=== PATIENT | male | born 1950 | race Caucasian/White ===

== ENCOUNTER 2021-06-23 10:25 | Emergency (ER) | payer MEDICARE, SELFPAY ==
[2021-06-23 10:25] VITALS: BP 177/109; PULSE 78; RESP 16; TEMP 36.6; O2SAT 99
--- NOTE | 2021-06-23 11:02 | ED.GENADULT ---
HPI - General Adult General Chief complaint: Ear Stated complaint: ball of hearing aid stuck in ear Source: patient Mode of arrival: ambulatory Limitations: no limitations History of Present Illness HPI narrative: Cory is a 71M with a PMH of hearing loss that presented to the ED with part of his hearing aid stuck in his left ear and a sense of fullness in his right ear. He denies pain and drainage as well as other concerns. Related Data Home Medications Medication Instructions Recorded Confirmed No Home Medications 06/23/21 06/23/21 Allergies Allergy/AdvReac Type Severity Reaction Status Date / Time NKDA Allergy Unknown Uncoded 03/27/12 16:10 Review of Systems Constitutional: Constitutional: Reports no additional constitutional complaints Eyes: Eyes: Reports no additional eye complaints ENT: Reports as per HPI Cardiovascular: Cardiovascular: Reports no additional cardiovascular complaints Respiratory: Respiratory: Reports no additional respiratory complaints Gastrointestinal: Gastrointestinal: Reports no additional gastrointestinal complaints Genitourinary: Genitourinary: Reports no additional male genitourinary complaints Musculoskeletal: Musculoskeletal: Reports no additional musculoskeletal complaints Integumentary/Breasts: Skin/Breast: Reports system reviewed and no additional complaints, except as docu Neurologic: Reports system reviewed and no additional complaints, except as documented Psychiatric: Psychiatric: Reports no additional psychiatric complaints Endocrine: Endocrine: Reports no additional endocrine complaints Hematologic/Lymphatic: Hematologic/Lymphatic: Reports no additional hematologic/lymphatic complaints Allergic/Immunologic: Allergic/Immunologic: Reports no additional allergic/immunologic complaints Exam Const: General: no acute distress and alert Orientation/consciousness: patient oriented x3 Limitations: No altered mental status HENMT: Head: normal to inspection Ears: TM's normal bilaterally Other: atraumatic. Black rubber piece in the right external ear canal. Cerumen impaction in the left ear canal. Eyes: Conjunctivae: conjunctivae normal Pupils: Equal, round and reactive pupils present Neck: Neck: normal visual inspection Chest: Chest palpation & inspection: normal inspection of the chest Resp: Effort & Inspection: normal respiratory effort Auscultation: clear to auscultation bilaterally Cardio: Rate: regular rate Rhythm: regular rhythm GI: Inspection: non-distended GI Palp: Yes Soft to palpation, No Tenderness to palpation present (GI) and No Guarding due to palpation present (GI) Urinary Catheter: Urinary Catheter: patent and draining Back/Spine/Pelvis: Back: no CVA tenderness Skin: General skin exam: normal color Rashes: no rashes Neuro: General: patient oriented x3 and moves all extremities Extrem: General: normal to inspection Psych: Mental Status: mental status grossly normal Course Vital Signs Vital signs: Vital Signs Temperature 98 F 06/23/21 10:25 Pulse Rate 78 06/23/21 10:25 Respiratory Rate 16 06/23/21 10:25 Blood Pressure 177/109 H 06/23/21 10:25 Pulse Oximetry 99 06/23/21 10:25 Temperature 98 F 06/23/21 10:25 Pulse Rate 78 06/23/21 10:25 Respiratory Rate 16 06/23/21 10:25 Blood Pressure 177/109 H 06/23/21 10:25 Pulse Oximetry 99 06/23/21 10:25 Procedures Ear Wax Removal Left Ear: Ear Wax Removal Date: 06/23/21 Cerumenolytic Used: other (curette) Results: Re-examined: cerumen removed completely TM Examination: TM(s) intact, normal appearance Ear Canal Exam: atraumatic Patient Tolerated Procedure: well Complications: no problems Foreign Body Removal Foreign Body #1: Foreign Body Removal Date: 06/23/21 Site: right and ear Description of foreign body: other (rubber hearing aid cover) Sedation/Analgesia: none Te
[2021-06-23 11:06] VITALS: TEMP 36.6
== END 2021-06-23 11:06 | disposition home or self-care (01) ==
PROVIDERS: Emergency Provider Family Medicine; PCP Family Medicine
DX: H61.20 Impacted cerumen, unspecified ear (principal)
CPT/HCPCS: 69200; 69210; 99282

== ENCOUNTER 2024-01-01 07:41 | Outpatient (CLI) | payer MEDICARE, SELFPAY ==
[2024-01-01 08:11] LABS: Hemoglobin A1C 5.7 % (<5.7)
[2024-01-01 08:44] LABS: Cholesterol 149 mg/dL (0-200); HDL Direct 60 mg/dL (40-60); LDL Cholesterol Calculated 73 mg/dL (<130); Triglycerides 78 mg/dL (0-150)
[2024-01-05 20:40] LABS: Vitamin D 25 Hydroxy 39 ng/mL (30-100)
== END 2024-01-01 07:42 | disposition home or self-care (01) ==
LOC: CHSLAB 07:44
PROVIDERS: PCP Family Medicine; Visit Provider Family Medicine
DX: E78.5 Hyperlipidemia, unspecified (principal); E55.9 Vitamin D deficiency, unspecified; R73.9 Hyperglycemia, unspecified
CPT/HCPCS: 36415; 80061; 82306; 83036

== ENCOUNTER 2024-12-14 09:25 | Outpatient (CLI) | payer MEDICARE, SELFPAY ==
[2024-12-14 09:47] LABS: Basophils Absolute Auto 0.05 K/mm3 (0.00-0.10); Basophils Percent Auto 0.6 % (0.0-1.0); Eosinophils Absolute Auto 0.14 K/mm3 (0.02-0.50); Eosinophils Percent Auto 1.8 % (1.0-6.0); Hematocrit 35.5 % (37.0-46.0); Hemoglobin 11.4 g/dL (12.4-15.3); Immature Granulocyte Absolute 0.05 K/mm3 (0.00-0.00); Immature Granulocyte Percent A 0.6 % (0.0-0.0); Lymphocytes Absolute Auto 1.75 K/mm3 (1.10-4.50); Lymphocytes Percent Auto 22.6 % (18.0-42.0); Mean Corpuscular HGB Conc 32.1 g/dL (32-36); Mean Corpuscular Hemoglobin 31.1 pg (27.0-31.0); Mean Corpuscular Volume 96.7 fL (78.0-102.0); Mean Platelet Volume 9.6 fl (8.7-11.0); Monocytes Absolute Auto 0.87 K/mm3 (0.10-0.90); Monocytes Percent Auto 11.2 % (2.0-11.0); Neutrophils Percent Auto 63.2 % (50.0-70.0); Platelet Count Result 220 K/mm3 (150-420); Red Blood Count 3.67 M/mm3 (4.70-6.10); Red Cell Distribution Width 12.7 % (11.6-14.4); White Blood Count 7.8 K/mm3 (4.8-10.8)
[2024-12-14 10:35] LABS: Thyroid Stimulating Hormone 0.89 uIU/mL (0.36-3.74)
[2024-12-14 11:32] LABS: Hemoglobin A1C 5.7 % (<5.7)
--- OUTSIDE RECORDS SUMMARY | 2024-12-14 12:12 | XMS_ITS | Referral Summary ---
Author Organization [facility] Medical Office Building A Address [address] [place] [address] Care Team Providers Care Email Engineer Name Role Phone Saurabh Contreras MD Primary Care Provider [phone] Yury Titus MD Unavailable [phone] Encounters Date Type Department Care Team Description 10/19/2024 11:15 AM RETAIL MANAGEMENT KEYHOLDER Office Visit 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); Tobacco abuse 10/19/2024 8:48 AM RETAIL MANAGEMENT KEYHOLDER - 10/19/2024 11:59 PM RETAIL MANAGEMENT KEYHOLDER Hospital Encounter [facility] [address] [place] [id number] Encounter for surgical aftercare following surgery on the circulatory system; Infrarenal abdominal aortic aneurysm (AAA) without rupture (HCC) Discharge Disposition: Discharge to home or self care 10/19/2024 8:59 AM RETAIL MANAGEMENT KEYHOLDER - 10/19/2024 11:59 PM RETAIL MANAGEMENT KEYHOLDER Hospital Encounter [facility] [address] [place] [id number] Encounter for surgical aftercare following surgery on the circulatory system Discharge Disposition: Discharge to home or self care 09/22/2024 Orders Only [facility] [address] [facility] Medical Office Building 1 [address] [place] [id number] Yury Titus MD Encounter for surgical aftercare following surgery on the circulatory system (Primary Dx); Infrarenal abdominal aortic aneurysm (AAA) without rupture (HCC) 09/17/2024 5:41 AM RETAIL MANAGEMENT KEYHOLDER - 09/20/2024 3:30 PM RETAIL MANAGEMENT KEYHOLDER Hospital Encounter [address] [address] Yury Titus MD Infrarenal abdominal aortic aneurysm (AAA) without rupture (HCC); PVD (peripheral vascular disease) (HCC) Discharge Disposition: Discharge to home or self care 09/17/2024 7:30 AM RETAIL MANAGEMENT KEYHOLDER - 09/17/2024 1:45 PM RETAIL MANAGEMENT KEYHOLDER Surgery [facility] Operating Room [address] [place] [address] Yury Titus MD RIGHT FEMORAL ENDARTERECTOMY 09/17/2024 7:23 AM RETAIL MANAGEMENT KEYHOLDER Anesthesia Event [facility] Operating Room [address] [place] [address] Bigg Martinez MD Rupert, Denisa White MD PhD from Last 3 Months Allergies No known active allergies Medications cyanocobalamin (Vitamin B-12) 500 mcg tablet Take 1 tablet (500 mcg total) by mouth dogger before breakfast Active ascorbic acid (VITAMIN C) 1,000 mg tablet Take 1 tablet (1,000 mg total) by mouth dogger before breakfast Active cholecalcifero l (VITAMIN D-3) 25 mcg (1,000 unit) tablet Take 1 tablet (1,000 Units total) by mouth dogger before breakfast Active aspirin 81 mg chewable tablet Take 1 tablet (81 mg total) by mouth daily 30 tablet 08/03/20 Active Additional Information Patient taking differently:81 mg oralDaily (early AM), Indications: prevention of thrombosis, Informant: Self, Reported on 09/17/2024 acetaminophen (TYLENOL) 500 mg tabletIndicati ons:Pain Take 1 tablet (500 mg total) by mouth every 6 (six) hours as needed for pain Active atorvastatin (LIPITOR) 80 mg tablet Take 1 tablet (80 mg total) by mouth nightly 30 tablet 07/20/20 24 Active Additional Information Patient taking differently:80 mg oral Nightly,Indications: arteriosclerotic vascular disease, hyperlipidemia, Informant: Self, Reported on 09/17/2024 clopidogreL (PLAVIX) 75 mg tablet Take 1 tablet (75 mg total) by mouth daily 30 tablet 07/20/20 24 Active Additional Information Patient taking differently:75 mg oralDaily (early AM), Indications: Thrombosis Prevention after PCI, Informant: Self, Reported on 09/17/2024 ezetimibe (ZETIA) 10 mg tablet Take 1 tablet (10 mg total) by mouth daily 30 tablet 07/20/20 025 Active Additional Information Patient taking differently:10 mg oralDaily (early AM), Indications: hyperlipidemia, Informant: Self, Reported on 09/17/2024 fluticasone propionate (FLONASE) 50 mcg/actuation nasal spray Administer 1 spray into each nostril daily as needed for rhinitis or allergies Active oxyCODONE (ROXICODONE) 5 mg immediate release tabletIndicati ons:Pain Take 1 tablet (5 mg total) by mouth every 4 (four) hours as needed for pain 10 tablet 09/20/20 24 Active Active Problems Problem Noted Date Diagnosed Date Aortic aneurysm without rupture 09/18/2024 AAA (abdominal aortic aneurysm) without rupture 09/17/2024 Infrarenal abdominal aortic aneurysm (AAA) witho ut rupture 08/17/2024 Assessment & Plan (09/19/2024 11:29 AM RETAIL MANAGEMENT KEYHOLDER): Recent CT angiogram shows 5.5 cm abdominal aortic aneurysm. Presents for hybrid intervention for AAA repair and PVD. - 09/17: OR s/p B/L EARLY CHILDHOOD SERVICES COORDINATOR cutdown (L EARLY CHILDHOOD SERVICES COORDINATOR repaired primarliy; R EARLY CHILDHOOD SERVICES COORDINATOR-SFA patch angioplasty at end of case); EVAR; L external iliac stenting and angioplasty - Normotensive blood pressure goal - OOB POD1 - ADAT - Pain control - PT/OT recs pending Carotid stenosis, bilateral 01/13/2024 Primary hypertension 02/26/2022 Assessment & Plan (09/17/2024 8:44 AM RETAIL MANAGEMENT KEYHOLDER): Not on medications. - monitor BP PVD (peripheral vascular disease) 07/25/2021 Overview (07/25/2021): Added automatically from request for surgery [id number] Assessment & Plan (09/19/2024 11:28 AM RETAIL MANAGEMENT KEYHOLDER): Hx of right external iliac artery stent that extends into the right common femoral artery along with right popliteal artery stent with Dr Smith at [facility] (07/2021). - 09/17: OR s/p B/L EARLY CHILDHOOD SERVICES COORDINATOR cutdown (L EARLY CHILDHOOD SERVICES COORDINATOR repaired primarliy; R EARLY CHILDHOOD SERVICES COORDINATOR-SFA patch angioplasty at end of case); EVAR; L external iliac stenting and angioplasty - continue asa, statin. Plavix on hold. - will resume plavix upon discharge Hyperlipidemia 04/07/2020 Assessment & Plan (09/17/2024 8:22 AM RETAIL MANAGEMENT KEYHOLDER): - continue atorvastatin, ezetimibe Abdominal aortic aneurysm (A AA) 3.0 cm to 5.5 cm in diameter in male 06/09/2017 Splenic lesion 06/09/2017 Pulmonary emphysema 04/21/2017 Vitamin D deficiency 03/31/2017 Tobacco abuse 02/18/2017 Assessment & Plan (09/17/2024 1:51 PM RETAIL MANAGEMENT KEYHOLDER): Has not smoked in 3 mo. - encourage cessation - NRT Immunizations Immunization Administration Dates Next Due Influenza, Quadrivalent, Spl it, Intramuscular 11/10/2013 Influenza, Quadrivalent, Spl it, Preservative Free, Intramuscular 09/11/2021,07/05/2020,07/28/2019,09/03,07/25/2016 Influenza, Trivalent, High D ose, Split, Preservative Free, Intramuscular 07/24/2017 Influenza, Trivalent, IM (MDV) 08/09/2017 Influenza, Trivalent, Preser vative Free, Intramuscular 07/18/2015 Influenza, Unspecified 08/09/2017 Pneumococcal Conjugate PCV 13 02/05/2018 Pneumococcal Polysaccharide PPV23 12/08/2019 Social History Tobacco Use Types Packs/Day Years Used Date Smoking Tobacco: Former Cigarettes 2 59.7 1 965 - 07/2024 Smokeless Tobacco: Former Chew Quit: 1993 Tobacco Cessation:Counseling Given: Not Answered Comments:counselled to contact PCP for assistance with quitting. Currently using patches. AUDIT-C Answer Date Recorded Q1: How often do you have a drink containing alc ohol? 2-4 times a month 09/09/2024 Q2: How many drinks containi ng alcohol do you have on a typical day when you are drinking? 3 or 4 09/09/2024 Q3: How often do you have si x or more drinks on one occasion? Never 09/09/2024 Personal Safety Answer Date Recorded Have you ever been in or are you currently in a harmful physical or emotional relationship or is someone making you feel afraid or unsafe? Denies 09/17/2024 Sex and Gender Information Value Date Recorded Sex Assigned at Not on file Legal Sex Male 6:57 AM RETAIL MANAGEMENT KEYHOLDER Gender Identity Not on file Sexual Orientation Not on file Last Filed Vital Signs Vital Sign Reading Time Taken Comments Blood Pressure 129/84 10/19/2024 10:18 AM RETAIL MANAGEMENT KEYHOLDER Pulse 78 10/19/2024 10:18 AM RETAIL MANAGEMENT KEYHOLDER Temperature 37.6 C (99.6 F) 09/20/2024 11:31 AM RETAIL MANAGEMENT KEYHOLDER Respiratory Rate 18 09/20/2024 11:3 1 AM RETAIL MANAGEMENT KEYHOLDER Oxygen Saturation 99% 10/19/2024 10: 18 AM RETAIL MANAGEMENT KEYHOLDER Inhaled Oxygen Concentration - - Weight 68.4 kg (150 lb 12.7 oz) 024 10:18 AM RETAIL MANAGEMENT KEYHOLDER Height 182.9 cm (6') 10/19/2024 10:18 AM RETAIL MANAGEMENT KEYHOLDER Body Mass Index 20.45 10/19/2024 10:18 AM RETAIL MANAGEMENT KEYHOLDER Plan of Treatment Not on file Medical Devices Implanted Type Area Ride Mechanic Device Identifier Shelf Expiration Date Model / Serial / Lot Terumo Medical Jarod Stent Graft Aortic Bifurcated Main Body [id number] Treo Polyester Nitinol 31-K8-67-100u - [id number] Implanted:Qty: 1 on 09/17/2024 by Yury Titus MD at [facility] Stent N/A: Aorta [employer] Jarod 03/19/2027 28-B2-28- 100U / / [id number] [employer] Jarod Stent Graft Iliac Leg Extension [id number] Treo Polyester Nitinol 02-Y7-59-120u - [id number] Implanted:Qty: 1 on 09/17/2024 by Yury Titus MD at [facility] Stent Right: Common Iliac Artery [employer] Jarod 05/14/2027 28-L2-13- 120U / / [id number] [employer] Jarod Stent Graft Iliac Leg Extension 13/54m900xh Treo Polyester Nitinol 40-A8-39-120u - [id number] Implanted:Qty: 1 on 09/17/2024 by Yury Titus MD at [facility] Stent Left: Common Iliac Artery [employer] Jarod 04/25/2027 28-L2-13- 120U / / [id number] Medtronic Inc Everflex 8mm 60mm 80cm 3 Wave Peak Self Expand Flexible Spiral [id number] - [id number] Implanted:Qty: 1 on 09/17/2024 by Yury Titus MD at [facility] Stent Left: External Iliac Artery Medtronic Inc [id number] 08/13/2027 [id number]- 060-080 / / [id number] Medtronic Inc Everflex Entrust 8mm 80mm 120cm Self Expand Triaxial Low Profile - [id number] Implanted:Qty: 1 on 08/03/2021 by Triston Smith MD at [facility] Medtronic Inc 12/30/2022 MMS14-48- 080-120 / / [id number] Daig Jarod/St Messi Medical [id number] Angio-Seal Evolution 6fr .035in Guidewire Bypass Tube Suture - [id number] Implanted:Qty: 1 on 08/03/2021 by Triston Smith MD at [facility] [employer] 03/27/2022 [id number] / / [id number] [employer] Inc [id number] Zilver Ptx 6mm 100mm 125cm Otw Preload Delivery System Self - [id number] Implanted:Qty: 1 on 08/03/2021 by Triston Smith MD at [facility] [employer] Medical Inc 04/27/2023 [id number] / / [id number] Medtronic Inc Everflex Entrust 7mm 40mm 120cm Self Expand Triaxial Low Profile - [id number] Implanted:Qty: 1 on 08/03/2021 by Triston Smith MD at [facility] Medtronic Inc 03/28/2024 FYC52-41- 040-120 / / [id number] [employer] Jraod Synergy Xd Monorail 3mm 24mm 144cm Delivery System 1 Access Port [id number] - [id number] Implanted:Qty: 1 on 04/04/2022 by Triston Smith MD at [facility] [employer] Jarod 11/13/2023 [id number] / / [id number] [employer] Jarod Synergy Xd Monorail 2.75mm 16mm 144cm Delivery System 1 Access [id number] - [id number] Implanted:Qty: 1 on 04/04/2022 by Triston Smith MD at [facility] [employer] Scientific Jarod 08/29/2023 [id number] / / [id number] [employer] Jarod Stent Drug Eluting S Megatron Us Mr 3.55h86bf [id number] - [id number] Implanted:Qty: 1 on 04/04/2022 by Triston Smith MD at [facility] [employer] Scientific Jarod 11/13/2022 [id number] / / [id number] Angio-Seal Evolution 6fr Vascular Closure [id number] - [id number] Implanted:Qty: 1 on 04/04/2022 by Triston Smith MD at [facility] [employer] 09/26/2022 [id number] / / [id number] [facility] Jarod Patch Vascuguard 0.88cm [id number] - [id number] - [id number] Implanted:Qty: 1 on 09/17/2024 by Yury Titus MD at [facility] Left: Groin [facility] Jarod [id number] 04/23/2026 [id number] / [id number] / [id number] Procedures Procedure Name Priority Date/Time Associated Diagnosis Comments CTA ABDOMINAL AORTA AND BILATERAL ILIOFEMORAL RUNOFF Schedule Routine, Read Routine (OP Routine) 10/19/2024 10:00 AM RETAIL MANAGEMENT KEYHOLDER Encounter for surgical aftercare following surgery on the circulatory system Infrarenal abdominal aortic aneurysm (AAA) without rupture (HCC) US FAB Schedule Routine, Read Routine (OP Routine) 10/19/2024 9:31 AM RETAIL MANAGEMENT KEYHOLDER Encounter for surgical aftercare following surgery on the circulatory system CBC WITHOUT DIFFERENTIAL Timed 09/20/2024 5:56 AM RETAIL MANAGEMENT KEYHOLDER EGFR Routine 09/19/2024 12:13 AM RETAIL MANAGEMENT KEYHOLDER BASIC METABOLIC PANEL Routine 09/19/2024 12:13 AM RETAIL MANAGEMENT KEYHOLDER CBC WITHOUT DIFFERENTIAL Routine 09/19/2024 12:13 AM RETAIL MANAGEMENT KEYHOLDER EGFR Routine 09/17/2024 10:47 PM RETAIL MANAGEMENT KEYHOLDER BASIC METABOLIC PANEL Routine 09/17/2024 10:47 PM RETAIL MANAGEMENT KEYHOLDER CBC WITHOUT DIFFERENTIAL Routine 09/17/2024 10:47 PM RETAIL MANAGEMENT KEYHOLDER POCT GLUCOSE DEVICE Routine 09/17/2024 8 :42 PM RETAIL MANAGEMENT KEYHOLDER DIFFERENTIAL AUTO Routine 09/17/2024 12: 21 PM RETAIL MANAGEMENT KEYHOLDER CBC WITH AUTO DIFFERENTIAL Routine 09/17/2024 12:21 PM RETAIL MANAGEMENT KEYHOLDER CV HYBRID ROOM (DEFAULT ORDERABLE) Routine 09/17/2024 12:00 PM RETAIL MANAGEMENT KEYHOLDER Infrarenal abdominal aortic aneurysm (AAA) without rupture (HCC) PVD (peripheral vascular disease) (HCC) VASCULAR SURGERY PROCEDURE Routine 09/17/2024 12:00 PM RETAIL MANAGEMENT KEYHOLDER Infrarenal abdominal aortic aneurysm (AAA) without rupture (HCC) PVD (peripheral vascular disease) (HCC) POCT ACTIVATED CLOTTING TIME, LOW RANGE Routine 09/17/2024 11:18 AM RETAIL MANAGEMENT KEYHOLDER POCT ACTIVATED CLOTTING TIME, LOW RANGE Routine 09/17/2024 11:02 AM RETAIL MANAGEMENT KEYHOLDER POCT ACTIVATED CLOTTING TIME, LOW RANGE Routine 09/17/2024 10:39 AM RETAIL MANAGEMENT KEYHOLDER POCT ACTIVATED CLOTTING TIME, LOW RANGE Routine 09/17/2024 10:04 AM RETAIL MANAGEMENT KEYHOLDER POCT ACTIVATED CLOTTING TIME, LOW RANGE Routine 09/17/2024 9:33 AM RETAIL MANAGEMENT KEYHOLDER POCT ACTIVATED CLOTTING TIME, LOW RANGE Routine 09/17/2024 9:01 AM RETAIL MANAGEMENT KEYHOLDER WV AN PROCEDURE PLACEHOLDER Routine 09/17/2024 8:30 AM RETAIL MANAGEMENT KEYHOLDER WV AN PROCEDURE PLACEHOLDER Routine 09/17/2024 8:28 AM RETAIL MANAGEMENT KEYHOLDER WV AN ELECTIVE ENDOTRACHEAL AIRWAY Routine 09/17/2024 8:28 AM RETAIL MANAGEMENT KEYHOLDER POC BLOOD GAS AND CHEMISTRIES, ARTERIAL Routine 09/17/2024 8:28 AM RETAIL MANAGEMENT KEYHOLDER POCT ACTIVATED CLOTTING TIME, LOW RANGE Routine 09/17/2024 8:07 AM RETAIL MANAGEMENT KEYHOLDER PREPARE RBC STAT 09/17/2024 7:54 AM RETAIL MANAGEMENT KEYHOLDER PLACEMENT STENT - ILIAC ARTERY - HYBRID ROOM 09/17/2024 7:28 AM RETAIL MANAGEMENT KEYHOLDER Infrarenal abdominal aortic aneurysm (AAA) without rupture (HCC) PVD (peripheral vascular disease) (HCC) POC BLOOD GAS AND CHEMISTRIES, ARTERIAL Routine 09/17/2024 6:22 AM RETAIL MANAGEMENT KEYHOLDER B CHECK SAMPLE STAT 09/17/2024 6:20 AM RETAIL MANAGEMENT KEYHOLDER from Last 3 Months Results * CTA Abdominal Aorta And Bilateral Iliofemoral Runoff (10/19/2024 10:00 AM RETAIL MANAGEMENT KEYHOLDER) Anatomical Region Laterality Modality Body Bilateral Computed Tomogra phy 10/19/2024 11:0 8 AM RETAIL MANAGEMENT KEYHOLDER Impressions 10/19/2024 11:08 AM RETAIL MANAGEMENT KEYHOLDER New aortobiiliac endovascular stent graft. Stable 58 mm infrarenal abdominal aortic aneurysm. Type II endoleak at the inferior mesenteric artery. Atherosclerotic disease in the lower extremity arteries. Electronically signed by: Abel May M.D. Narrative 10/19/2024 11:08 AM RETAIL MANAGEMENT KEYHOLDER EXAMINATION: CTA ABDOMINAL AORTA AND BILATERAL ILIOFEMORAL RUNOFF DATE: 10/19/2024 10:30 AM HISTORY: S/P EVAR TECHNIQUE: Images through the abdomen, pelvis and bilateral lower extremities were obtained following intravenous contrast administration. Three-dimensional performed. COMPARISON: 08/12/2024 FINDINGS: Aortobiiliac endovascular stent graft is present, new since 08/12/2024. There is a 51 x 58 mm infrarenal abdominal aortic aneurysm, unchanged in size. Stent graft appears in good position. Type II endoleak is noted likely at the inferior mesenteric artery. Stent graft is patent. The celiac and superior mesenteric arteries enhance normally. Bilateral renal arteries are patent and enhance normally. Patent stent is noted in the right external iliac artery and common femoral artery. Right internal iliac artery is calcified and moderately diseased. The right deep femoral artery is normal. The right superficial femoral artery is mildly diseased but patent. Patent stent is noted in the right popliteal artery [id number]. Approximately 50% focal in-stent stenosis is noted at the popliteal artery. Popliteal artery below the knee is mildly diseased but patent. There is a normal trifurcation on the right. The right tibial and peroneal arteries are mildly diseased but patent. There is three-vessel runoff to the right ankle and 2 vessel runoff to the right foot. Patent stent is noted in the left external iliac artery. Left internal iliac artery is calcified and moderately diseased. Left common femoral artery is calcified but without hemodynamically significant stenosis. The left deep femoral artery enhances normally. The left superficial femoral artery is mildly calcified but patent and without hemodynamically significant stenosis. The left popliteal artery is mildly calcified but without hemodynamically significant stenosis. There is a patent stent in the left posterior tibial artery origin. The tibial and peroneal arteries on the left are relatively normal. There is three-vessel runoff to the left ankle with 2 vessel runoff to the left foot. Procedure Note Abel May MD - 10/19/2024 EXAMINATION: CTA ABDOMINAL AORTA AND BILATERAL ILIOFEMORAL RUNOFF DATE: 10/19/2024 10:30 AM HISTORY: S/P EVAR TECHNIQUE: Images through the abdomen, pelvis and bilateral lower extremities were obtained following intravenous contrast administration. Three-dimensional performed. COMPARISON: 08/12/2024 FINDINGS: Aortobiiliac endovascular stent graft is present, new since 08/12/2024. There is a 51 x 58 mm infrarenal abdominal aortic aneurysm, unchanged in size. Stent graft appears in good position. Type II endoleak is noted likely at the inferior mesenteric artery. Stent graft is patent. The celiac and superior mesenteric arteries enhance normally. Bilateral renal arteries are patent and enhance normally. Patent stent is noted in the right external iliac artery and common femoral artery. Right internal iliac artery is calcified and moderately diseased. The right deep femoral artery is normal. The right superficial femoral artery is mildly diseased but patent. Patent stent is noted in the right popliteal artery [id number]. Approximately 50% focal in-stent stenosis is noted at the popliteal artery. Popliteal artery below the knee is mildly diseased but patent. There is a normal trifurcation on the right. The right tibial and peroneal arteries are mildly diseased but patent. There is three-vessel runoff to the right ankle and 2 vessel runoff to the right foot. Patent stent is noted in the left external iliac artery. Left internal iliac artery is calcified and moderately diseased. Left common femoral artery is calcified but without hemodynamically significant stenosis. The left deep femoral artery enhances normally. The left superficial femoral artery is mildly calcified but patent and without hemodynamically significant stenosis. The left popliteal artery is mildly calcified but without hemodynamically significant stenosis. There is a patent stent in the left posterior tibial artery origin. The tibial and peroneal arteries on the left are relatively normal. There is three-vessel runoff to the left ankle with 2 vessel runoff to the left foot. IMPRESSION: New aortobiiliac endovascular stent graft. Stable 58 mm infrarenal abdominal aortic aneurysm. Type II endoleak at the inferior mesenteric artery. Atherosclerotic disease in the lower extremity arteries. Electronically signed by: Abel May M.D. us Yury Titus MD IMEsme CT PROCEDURES Final Resu lt * US FAB (10/19/2024 9:31 AM RETAIL MANAGEMENT KEYHOLDER) Anatomical Region Laterality Modality Vascular N/A Ultrasound 10/19/2024 1:42 PM RETAIL MANAGEMENT KEYHOLDER Impressions 10/19/2024 1:42 PM RETAIL MANAGEMENT KEYHOLDER RIGHT LEG: Interval loss of signal in the DP, which corresponds to diminutive but patent to the ankle anterior tibialis artery in the CT scan from the same date, unchanged compared to prior CT scan from 08/12/2024. Otherwise unchanged exam compared to prior Doppler from 06/30/2024, with normal FAB, borderline abnormal TBI and multiphasic PT waveform. FAB is 1.02 in the PT territory, compared to 0.93 in the prior Doppler from 06/30/2024. TBI is 0.58, compared to 0.51 in the prior Doppler from 06/30/2024. LEFT LEG: Overall unchanged study compared to prior Doppler from 06/30/2024, with multiphasic tibial waveforms, normal FAB and mildly abnormal TBI. FAB is 0.99, compared to 0.86 in the prior Doppler from 06/30/2024. TBI is 0.35, compared to 0.46 in the prior Doppler from 06/30/2024. Electronically signed by: Earnestine James MD Narrative 10/19/2024 1:42 PM RETAIL MANAGEMENT KEYHOLDER EXAMINATION: BILATERAL LOWER EXTREMITY ANKLE BRACHIAL INDEX WITH DOPPLER DATE: 10/19/2024 9:30 AM HISTORY: Encounter for Surgical Aftercare Following Surgery on the Circulatory System COMPARISON: CTA from the same date 10/19/2024, prior Doppler from 06/30/2024 TECHNIQUE: Standard technique was employed for bilateral lower extremity ABIs including Doppler images with spectral waveform analysis. FINDINGS: SITE PRESSURE INDEX RT BRACHIAL 159 RT ANKLE PT 162 1.02 RT ANKLE DP not detected - RT DIGIT 92 0.58 Right dorsalis pedis waveform is not detectable and the posterior tibial waveform is multiphasic. The digital waveform is Pulsatile LT BRACHIAL 157 LT ANKLE PT 157 0.99 LT ANKLE DP 153 0.96 LT DIGIT 56 0.35 Left dorsalis pedis waveform is multiphasic and the posterior tibial waveform is multiphasic. The digital waveform is Pulsatile Procedure Note Earnestine Sagastume MD - 10/19/2024 EXAMINATION: BILATERAL LOWER EXTREMITY ANKLE BRACHIAL INDEX WITH DOPPLER DATE: 10/19/2024 9:30 AM HISTORY: Encounter for Surgical Aftercare Following Surgery on the Circulatory System COMPARISON: CTA from the same date 10/19/2024, prior Doppler from 06/30/2024 TECHNIQUE: Standard technique was employed for bilateral lower extremity ABIs including Doppler images with spectral waveform analysis. FINDINGS: SITE PRESSURE INDEX RT BRACHIAL 159 RT ANKLE PT 162 1.02 RT ANKLE DP not detected - RT DIGIT 92 0.58 Right dorsalis pedis waveform is not detectable and the posterior tibial waveform is multiphasic. The digital waveform is Pulsatile LT BRACHIAL 157 LT ANKLE PT 157 0.99 LT ANKLE DP 153 0.96 LT DIGIT 56 0.35 Left dorsalis pedis waveform is multiphasic and the posterior tibial waveform is multiphasic. The digital waveform is Pulsatile IMPRESSION: RIGHT LEG: Interval loss of signal in the DP, which corresponds to diminutive but patent to the ankle anterior tibialis artery in the CT scan from the same date, unchanged compared to prior CT scan from 08/12/2024. Otherwise unchanged exam compared to prior Doppler from 06/30/2024, with normal FAB, borderline abnormal TBI and multiphasic PT waveform. FAB is 1.02 in the PT territory, compared to 0.93 in the prior Doppler from 06/30/2024. TBI is 0.58, compared to 0.51 in the prior Doppler from 06/30/2024. LEFT LEG: Overall unchanged study compared to prior Doppler from 06/30/2024, with multiphasic tibial waveforms, normal FAB and mildly abnormal TBI. FAB is 0.99, compared to 0.86 in the prior Doppler from 06/30/2024. TBI is 0.35, compared to 0.46 in the prior Doppler from 06/30/2024. Electronically signed by: Earnestine James MD us Yury Titus MD IMG US PROCEDURES Final Resu lt * (ABNORMAL) CBC without differential (09/20/2024 5:56 AM RETAIL MANAGEMENT KEYHOLDER) WBC 13.7(H) 3.8 - 9.9 K/cumm Hgb 11.0(L) 13.0 - 17.5 g/dL [facility] Hct 33.1(L) 38.9 - 50.3 % [facility] Plt 137(L) 150 - 400 K/cumm [facility] MPV 10.9 9.1 - 12.3 fL [facility] RBC 3.50(L) 4.30 - 5.80 M/cumm [facility] MCV 94.6 81.3 - 96.4 fL [facility] MCH 31.4 27.1 - 33.3 pg [facility] MCHC 33.2 32.3 - 35.7 g/dL [facility] RDW CV 13.0 11.1 - 14.9 % [facility] RDW SD 45.1 35.7 - 48.1 fL [facility] NRBC abs 0.00 0.00 - 0.01 K/cumm [facility] Blood 09/20/2024 5:56 AM RETAIL MANAGEMENT KEYHOLDER 09/20/2024 6:28 AM RETAIL MANAGEMENT KEYHOLDER us Yury Titus MD LAB BLOOD ORDERABLES Final R esult [facility] [place] [address] * eGFR (09/19/2024 12:13 AM RETAIL MANAGEMENT KEYHOLDER) [facility] eGFR 73 >=60 mL/min/1. 73 m2 Comment: Interpretive Data Reference Interval Normal >/= 90 mL/min/1.73m2 Mildly decreased* 60 - 89 mL/min/1.73m2 Mildly to moderately decreased 45 - 59 mL/min/1.73m2 Moderately to severely decreased 30 - 44 mL/min/1.73m2 Severely decreased 15 - 29 mL/min/1.73m2 Kidney Failure < 15 mL/min/1.73m2 *Relative to young adult level Estimated glomerular filtration rate is determined by the 2020 CKD-EPI equation recommended by the National Kidney Foundation (A Unifying Approach to GFR Estimation: Recommendations of the NKF-ASK Task Force on Reassessing the Inclusion of Race in Diagnosing Kidney Disease, JASN 202). The CKD-EPI equation should not be used for patients with unstable renal function and has not been validated in children and those over 70. Current interpretive data was last reviewed 2021. Blood 09/19/2024 12:1 3 AM RETAIL MANAGEMENT KEYHOLDER 09/19/2024 12:56 AM RETAIL MANAGEMENT KEYHOLDER Isabella Evans EMBOSSING UNIT OPERATOR LAB BLOOD ORDERABLES Beth l Result Performing Organization Address [facility]/ZIP Co de Phone Number [facility] [place] [address] * (ABNORMAL) CBC without differential (09/19/2024 12:13 AM RETAIL MANAGEMENT KEYHOLDER) WBC 16.4(H) 3.8 - 9.9 K/cumm Hgb 11.0(L) 13.0 - 17.5 g/dL [facility] Hct 32.1(L) 38.9 - 50.3 % [facility] Plt 132(L) 150 - 400 K/cumm [facility] MPV 10.8 9.1 - 12.3 fL [facility] RBC 3.34(L) 4.30 - 5.80 M/cumm [facility] MCV 96.1 81.3 - 96.4 fL [facility] MCH 32.9 27.1 - 33.3 pg [facility] MCHC 34.3 32.3 - 35.7 g/dL [facility] RDW CV 12.9 11.1 - 14.9 % [facility] RDW SD 45.4 35.7 - 48.1 fL [facility] NRBC abs 0.00 0.00 - 0.01 K/cumm [facility] Blood 09/19/2024 12:1 3 AM RETAIL MANAGEMENT KEYHOLDER 09/19/2024 12:58 AM RETAIL MANAGEMENT KEYHOLDER Isabella Evans EMBOSSING UNIT OPERATOR LAB BLOOD ORDERABLES Beth l Result Performing Organization Address [facility]/State/ZIP Co de Phone Number [facility] [place] [address] * Basic metabolic panel (09/19/2024 12:13 AM RETAIL MANAGEMENT KEYHOLDER) Pathologist [facility] Sodium 139 135 - 145 mmol/L Potassium, pl 4.0 3.3 - 4.9 mmol/L [facility] Chloride 104 97 - 110 mmol/L [facility] CO2 24 22 - 32 mmol/L [facility] Anion gap 11 2 - 15 mmol/L [facility] BUN 18 6 - 25 mg/dL [facility] Creatinine 1.08 0.80 - 1.30 mg/dL [facility] Glucose 107 70 - 199 mg/dL [facility] Comment: Interpretive Data Fasting glucose >/= 126 mg/dl is diagnostic for diabetes. Fasting is defined as no caloric intake for at least 8 hours. Fasting glucose between 100 mg/dl to 125 mg/dl is diagnostic of prediabetes. In a patient with classic symptoms of hyperglycemia or hyperglycemic crisis, a random glucose >/= 200 mg/dl is diagnostic for diabetes. In the absence of unequivocal hyperglycemia, results should be confirmed by repeat testing. The classification and Diagnosis of Diabetes Diabetes Care 2021; 46: S19-S40. Current interpretive data was last revised 2022. Calcium 8.9 8.5 - 10.3 mg/dL [facility] Blood 09/19/2024 12:1 3 AM RETAIL MANAGEMENT KEYHOLDER 09/19/2024 12:56 AM RETAIL MANAGEMENT KEYHOLDER Isabella Evans EMBOSSING UNIT OPERATOR LAB BLOOD ORDERABLES Beth tony Result [facility] [place] [address] * eGFR (09/17/2024 10:47 PM RETAIL MANAGEMENT KEYHOLDER) Pathologist [facility] eGFR 68 >=60 mL/min/1. 73 m2 Comment: Interpretive Data Reference Interval Normal >/= 90 mL/min/1.73m2 Mildly decreased* 60 - 89 mL/min/1.73m2 Mildly to moderately decreased 45 - 59 mL/min/1.73m2 Moderately to severely decreased 30 - 44 mL/min/1.73m2 Severely decreased 15 - 29 mL/min/1.73m2 Kidney Failure < 15 mL/min/1.73m2 *Relative to young adult level Estimated glomerular filtration rate is determined by the 2020 CKD-EPI equation recommended by the National Kidney Foundation (A Unifying Approach to GFR Estimation: Recommendations of the NKF-ASK Task Force on Reassessing the Inclusion of Race in Diagnosing Kidney Disease, JASN 202). The CKD-EPI equation should not be used for patients with unstable renal function and has not been validated in children and those over 70. Current interpretive data was last reviewed 2021. Blood 09/17/2024 10:4 7 PM RETAIL MANAGEMENT KEYHOLDER 09/17/2024 11:26 PM RETAIL MANAGEMENT KEYHOLDER Yury Titus MD LAB BLOOD ORDERABLES Final R esult [facility] [place] [address] * (ABNORMAL) CBC without differential (09/17/2024 10:47 PM RETAIL MANAGEMENT KEYHOLDER) WBC 13.5(H) 3.8 - 9.9 K/cumm Hgb 11.1(L) 13.0 - 17.5 g/dL [facility] Hct 32.8(L) 38.9 - 50.3 % [facility] Plt 138(L) 150 - 400 K/cumm [facility] MPV 10.8 9.1 - 12.3 fL [facility] RBC 3.45(L) 4.30 - 5.80 M/cumm [facility] MCV 95.1 81.3 - 96.4 fL [facility] MCH 32.2 27.1 - 33.3 pg [facility] MCHC 33.8 32.3 - 35.7 g/dL [facility] RDW CV 12.9 11.1 - 14.9 % [facility] RDW SD 45.1 35.7 - 48.1 fL [facility] NRBC abs 0.00 0.00 - 0.01 K/cumm [facility] Blood 09/17/2024 10:4 7 PM RETAIL MANAGEMENT KEYHOLDER 09/17/2024 11:26 PM RETAIL MANAGEMENT KEYHOLDER Yury Titus MD LAB BLOOD ORDERABLES Final R esult Performing Organization Address City/[facility]/ZIP Co de Phone Number [facility] [place] [address] * Basic metabolic panel (09/17/2024 10:47 PM RETAIL MANAGEMENT KEYHOLDER) Pathologist [facility] Sodium 140 135 - 145 mmol/L Potassium, pl 4.0 3.3 - 4.9 mmol/L [facility] Chloride 106 97 - 110 mmol/L [facility] CO2 22 22 - 32 mmol/L [facility] Anion gap 12 2 - 15 mmol/L [facility] BUN 15 6 - 25 mg/dL [facility] Creatinine 1.14 0.80 - 1.30 mg/dL [facility] Glucose 112 70 - 199 mg/dL [facility] Comment: Interpretive Data Fasting glucose >/= 126 mg/dl is diagnostic for diabetes. Fasting is defined as no caloric intake for at least 8 hours. Fasting glucose between 100 mg/dl to 125 mg/dl is diagnostic of prediabetes. In a patient with classic symptoms of hyperglycemia or hyperglycemic crisis, a random glucose >/= 200 mg/dl is diagnostic for diabetes. In the absence of unequivocal hyperglycemia, results should be confirmed by repeat testing. The classification and Diagnosis of Diabetes Diabetes Care 2021; 46: S19-S40. Current interpretive data was last revised 2022. Calcium 8.7 8.5 - 10.3 mg/dL [facility] Blood 09/17/2024 10:4 7 PM RETAIL MANAGEMENT KEYHOLDER 09/17/2024 11:26 PM RETAIL MANAGEMENT KEYHOLDER Yury Titus MD LAB BLOOD ORDERABLES Final R esult Performing Organization Address City/[facility]/ZIP Co de Phone Number [facility] [place] [address] * POCT glucose (09/17/2024 8:42 PM RETAIL MANAGEMENT KEYHOLDER) Pathologist [facility] Glucose, POC 121 70 - 199 mg/dL Blood 09/17/2024 8:42 PM RETAIL MANAGEMENT KEYHOLDER 09/17/2024 8:42 PM RETAIL MANAGEMENT KEYHOLDER Yury Titus MD LAB POCT ORDERABLES - DEVICE Final Result [facility] [place] [address] * Differential, auto (09/17/2024 12:21 PM RETAIL MANAGEMENT KEYHOLDER) [facility] Neutrophil abs 6.0 1.5 - 6.5 K/cumm Imm gran abs 0.1 0.0 - 0.1 K/cumm [facility] Lymphocyte abs 1.6 0.8 - 3.3 K/cumm [facility] Monocyte abs 0.8 0.2 - 0.8 K/cumm [facility] Eosinophil abs 0.2 0.0 - 0.5 K/cumm [facility] Basophil abs 0.0 0.0 - 0.1 K/cumm [facility] Neutrophil pct 69.1 % [facility] Comment: Interpretive Data Percent cell count reference ranges are not reported, since discordance with absolute values may lead to misinterpretation of CBC data. Current Interpretive Data was last revised on 2018. Imm gran pct 0.8 % [facility] Comment: Interpretive Data Percent cell count reference ranges are not reported, since discordance with absolute values may lead to misinterpretation of CBC data. Current Interpretive Data was last revised on 2018. Lymphocyte pct 18.8 % [facility] Comment: Interpretive Data Percent cell count reference ranges are not reported, since discordance with absolute values may lead to misinterpretation of CBC data. Current Interpretive Data was last revised on 2018. Monocyte pct 8.8 % [facility] Comment: Interpretive Data Percent cell count reference ranges are not reported, since discordance with absolute values may lead to misinterpretation of CBC data. Current Interpretive Data was last revised on 2018. Eosinophil pct 2.0 % [facility] Comment: Interpretive Data Percent cell count reference ranges are not reported, since discordance with absolute values may lead to misinterpretation of CBC data. Current Interpretive Data was last revised on 2018. Basophil pct 0.5 % [facility] Comment: Interpretive Data Percent cell count reference ranges are not reported, since discordance with absolute values may lead to misinterpretation of CBC data. Current Interpretive Data was last revised on 2018. Blood 09/17/2024 12:2 1 PM RETAIL MANAGEMENT KEYHOLDER 09/17/2024 12:37 PM RETAIL MANAGEMENT KEYHOLDER Yury Titus MD LAB BLOOD ORDERABLES Final R esult [facility] [place] [address] * (ABNORMAL) CBC with auto differential (09/17/2024 12:21 PM RETAIL MANAGEMENT KEYHOLDER) WBC 8.7 3.8 - 9.9 K/cumm Hgb 10.8(L) 13.0 - 17.5 g/dL [facility] Hct 32.5(L) 38.9 - 50.3 % [facility] Plt 139(L) 150 - 400 K/cumm [facility] MPV 10.1 9.1 - 12.3 fL [facility] RBC 3.42(L) 4.30 - 5.80 M/cumm [facility] MCV 95.0 81.3 - 96.4 fL [facility] MCH 31.6 27.1 - 33.3 pg [facility] MCHC 33.2 32.3 - 35.7 g/dL [facility] RDW CV 12.7 11.1 - 14.9 % [facility] RDW SD 44.3 35.7 - 48.1 fL [facility] NRBC abs 0.00 0.00 - 0.01 K/cumm [facility] Blood 09/17/2024 12:2 1 PM RETAIL MANAGEMENT KEYHOLDER 09/17/2024 12:37 PM RETAIL MANAGEMENT KEYHOLDER us Yury Titus MD LAB BLOOD ORDERABLES Final R esult Performing Organization Address City/[facility]/ZIP Co de Phone Number [facility] [place] [employer] [place] [address] * ENDOVASCULAR REPAIR - AORTIC (09/17/2024 12:00 PM RETAIL MANAGEMENT KEYHOLDER) Anatomical Region Laterality Modality X-Ray Angiograph y Narrative 09/17/2024 12:49 PM RETAIL MANAGEMENT KEYHOLDER Please see OpNote for result. us Yury Titus MD SURGICAL CASE ORDERS Final R esult * ENDARTERECTOMY - FEMORAL POPLITEAL OR TIBIOPERONEAL (09/17/2024 12:00 PM RETAIL MANAGEMENT KEYHOLDER) Anatomical Region Laterality Modality X-Ray Angiograph y Narrative 09/17/2024 12:49 PM RETAIL MANAGEMENT KEYHOLDER Please see OpNote for result. us Yury Titus MD CV CARDIAC CATH PROCEDURES F inal Result * POCT Activated clotting time, low range (09/17/2024 11:18 AM RETAIL MANAGEMENT KEYHOLDER) ACT 133 123 - 168 sec POC Performer [id number] [facility] POC Device Number [id number] [facility] Blood 09/17/2024 11:1 8 AM RETAIL MANAGEMENT KEYHOLDER 09/17/2024 11:18 AM RETAIL MANAGEMENT KEYHOLDER us Yury Titus MD LAB POCT ORDERABLES - DEVICE Final Result Performing Organization Address City/[facility]/ZIP Co de Phone Number [facility] [place] [place] [address] * (ABNORMAL) POCT Activated clotting time, low range (09/17/2024 11:02 AM RETAIL MANAGEMENT KEYHOLDER) ACT 253(H) 123 - 168 sec POC Performer [id number] [facility] POC Device Number [id number] [facility] Blood 09/17/2024 11:0 2 AM RETAIL MANAGEMENT KEYHOLDER 09/17/2024 11:02 AM RETAIL MANAGEMENT KEYHOLDER Yury Titus MD LAB POCT ORDERABLES - DEVICE Final Result Performing Organization Address [facility] Co de Phone Number [facility] [place] [address] * (ABNORMAL) POCT Activated clotting time, low range (09/17/2024 10:39 AM RETAIL MANAGEMENT KEYHOLDER) ACT 244(H) 123 - 168 sec POC Performer [id number] [facility] POC Device Number [id number] [facility] Blood 09/17/2024 10:3 9 AM RETAIL MANAGEMENT KEYHOLDER 09/17/2024 10:39 AM RETAIL MANAGEMENT KEYHOLDER Yury Titus MD LAB POCT ORDERABLES - DEVICE Final Result Performing Organization Address [facility] de Phone Number [facility] [place] [address] * (ABNORMAL) POCT Activated clotting time, low range (09/17/2024 10:04 AM RETAIL MANAGEMENT KEYHOLDER) ACT 250(H) 123 - 168 sec POC Performer [id number] [facility] POC Device Number [id number] [facility] Blood 09/17/2024 10:0 4 AM RETAIL MANAGEMENT KEYHOLDER 09/17/2024 10:04 AM RETAIL MANAGEMENT KEYHOLDER Yury Titus MD LAB POCT ORDERABLES - DEVICE Final Result Performing Organization Address [facility] de Phone Number [facility] [place] [address] * (ABNORMAL) POCT Activated clotting time, low range (09/17/2024 9:33 AM RETAIL MANAGEMENT KEYHOLDER) ACT 207(H) 123 - 168 sec POC Performer [id number] [facility] POC Device Number [id number] [facility] Blood 09/17/2024 9:33 AM RETAIL MANAGEMENT KEYHOLDER 09/17/2024 9:33 AM RETAIL MANAGEMENT KEYHOLDER Result [facility] Yury Titus MD LAB POCT ORDERABLES - DEVICE Final Result Performing Organization Address [facility] Co de Phone Number [facility] [place] [employer] [place] [address] * (ABNORMAL) POCT Activated clotting time, low range (09/17/2024 9:01 AM RETAIL MANAGEMENT KEYHOLDER) ACT 279(H) 123 - 168 sec POC Performer [id number] [facility] POC Device Number [id number] [facility] Blood 09/17/2024 9:01 AM RETAIL MANAGEMENT KEYHOLDER 09/17/2024 9:01 AM RETAIL MANAGEMENT KEYHOLDER Result [facility] Yury Titus MD LAB POCT ORDERABLES - DEVICE Final Result Performing Organization Address [facility] [place] [address] * [place] AN PROCEDURE PLACEHOLDER (09/17/2024 8:30 AM RETAIL MANAGEMENT KEYHOLDER) Narrative Neema Miller - 09/17/2024 8:30 AM RETAIL MANAGEMENT KEYHOLDER Neema Miller 09/17/2024 8:32 AM Peripheral IV Catheter Patient location: OR Staff: Supervising provider: Bigg Martinez MD Placed by: DISTILLER: Rosanne Gray CRNA Preprocedure prep: Prep solution: chlorhexadine PPE: gloves and provider hat/mask PIV line: Laterality: left Site: wrist Catheter size: 16 g Technique: direct visualization and palpatation Procedure details: good blood return and occlusive dressing applied Number of attempts: 2 Assessment: Events: patient tolerated procedure well with no complications us Bigg Martinez MD ANESTHESIA ORDERABLES Final Resu lt * [place] AN ELECTIVE ENDOTRACHEAL AIRWAY, [place] AN PROCEDURE PLACEHOLDER (09/17/2024 8:28 AM RETAIL MANAGEMENT KEYHOLDER) Narrative Neema Miller - 09/17/2024 8:28 AM RETAIL MANAGEMENT KEYHOLDER Neema Miller 09/17/2024 8:30 AM Airway Patient location: OR Urgency: elective Indications for airway management: anesthesia Difficult airway: no Staff: Supervising provider: Bigg Martinez MD Placed by: Other staff: Neema Miller Emergent airway documentation: Risks and benefits discussed: yes Consent obtained: yes Consent given by: patient Airway prep: Preoxygenated: yes Patient position: sniffing Mask difficulty assessment: 3 - difficult mask (inadequate, unstable or two providers) Spontaneous ventilation during airway: absent Sedation level during airway: GA Final airway details: Final airway type: endotracheal airway Tube type: ETT ETT size: 8.0 mm Cuffed: yes Technique used for successful ETT placement: direct laryngoscopy Devices/Methods used in placement: stylet Insertion site: oral Blade type: Suzanne Blade size: 4 Cormack-Lehane (direct): grade I - full view of glottis Initial cuff pressure: 27 cm H2O Cuff inflated with: air ETT to lips: 23 cm Placement verified by: auscultation and CO2 detection Airway secured with: silk tape Number of attempts: 1 us Bigg Martinez MD ANESTHESIA ORDERABLES Final Resu lt * (ABNORMAL) POC Blood Gas and Chemistries, Arterial - (09/17/2024 8:28 AM RETAIL MANAGEMENT KEYHOLDER) pH, Art POC 7.38 7.35 - 7.45 pCO2, Art POC 41 35 - 45 mmHg [facility] pO2, Art POC Incalculable 83 - 108 mmHg [facility] Na, POC 141 135 - 145 mmol/L [facility] K POC 4.1 3.3 - 4.9 mmol/L [facility] Comment: Interpretive Data Not all point of care methods assess for hemolysis. Confirm with instrument and retest K+ if not consistent with clinical signs and symptoms. Current Interpretive Data was last revised on 2024. Cl, POC 113(H) 97 - 110 mmol/L [facility] Ionized Ca, POC 5.05 4.50 - 5.10 mg/dL [facility] Glucose, POC 119 70 - 199 mg/dL [facility] Lactate, POC 0.9 0.7 - 2.2 mmol/L [facility] SO2 (hannah) arterial 100(H) 90 - 95 % [facility] Base excess, POC -0.8 mmol/L [facility] HCO3, Art POC Incalculable 20 - 30 mmol/L [facility] Hct, POC 35.0(L) 41.4 - 51.6 % [facility] Total Hb, POC 11.6(L) 13.8 - 17.2 g/dL [facility] Blood 09/17/2024 8:28 AM RETAIL MANAGEMENT KEYHOLDER 09/17/2024 8:28 AM RETAIL MANAGEMENT KEYHOLDER Yury Titus MD LAB POCT ORDERABLES - DEVICE Final Result Performing Organization Address City/[facility]/ZIP Co de Phone Number [facility] [place] [place] [address] * POCT Activated clotting time, low range (09/17/2024 8:07 AM RETAIL MANAGEMENT KEYHOLDER) [facility] ACT 129 123 - 168 sec POC Performer [id number] [facility] POC Device Number [id number] [facility] Blood 09/17/2024 8:07 AM RETAIL MANAGEMENT KEYHOLDER 09/17/2024 8:07 AM RETAIL MANAGEMENT KEYHOLDER Yury Titus MD LAB POCT ORDERABLES - DEVICE Final Result Performing Organization Address City/[facility]/ZIP Co de Phone Number [facility] [place] [place] [address] * Prepare RBC: 4 Units (09/17/2024 7:54 AM RETAIL MANAGEMENT KEYHOLDER) [facility] Product code [id number] Unit Number [id number] 2-U [facility] Product Blood Type APOS [facility] Dispense Status RETURNED [facility] Product code [id number] [facility] Unit Number [id number] 0[facility]B [facility] Product Blood Type APOS [facility] Dispense Status RETURNED [facility] Product code [id number] [facility] Unit Number [id number] 2-U [facility] Product Blood Type APOS [facility] Dispense Status RETURNED [facility] Product code [id number] [facility] Unit Number [id number] 3-M [facility] Product Blood Type APOS [facility] Dispense Status RETURNED [facility] Blood 09/17/2024 7:54 AM RETAIL MANAGEMENT KEYHOLDER 09/17/2024 7:53 AM RETAIL MANAGEMENT KEYHOLDER Narrative [facility] - 09/18/2024 5:36 AM RETAIL MANAGEMENT KEYHOLDER Are special requirements needed? (All products are leukoreduced and CMV- safe)- >No Date required:-[id number] LRRBC # of [id number] Reasons:-Intra-op transfusion} us Bigg Martinez MD BLOOD BANK PRODUCT ORDERABLES Fi nal Result Performing Organization Address City/[facility]/ZIP Co de Phone Number [facility] [place] [place] [address] * (ABNORMAL) POC Blood Gas and Chemistries, Arterial - (09/17/2024 6:22 AM RETAIL MANAGEMENT KEYHOLDER) Na, POC 141 135 - 145 mmol/L K POC 4.2 3.3 - 4.9 mmol/L [facility] Comment: Interpretive Data Not all point of care methods assess for hemolysis. Confirm with instrument and retest K+ if not consistent with clinical signs and symptoms. Current Interpretive Data was last revised on 2024. Glucose, POC 113 70 - 199 mg/dL [facility] Hct, POC 38.0(L) 41.4 - 51.6 % [facility] Total Hb, POC 12.5(L) 13.8 - 17.2 g/dL [facility] Blood 09/17/2024 6:22 AM RETAIL MANAGEMENT KEYHOLDER 09/17/2024 6:22 AM RETAIL MANAGEMENT KEYHOLDER us Yury Titus MD LAB POCT ORDERABLES - DEVICE Final Result Performing Organization Address City/[facility]/ZIP Co de Phone Number [facility] [place] [place] [address] * Check Sample (09/17/2024 6:20 AM RETAIL MANAGEMENT KEYHOLDER) ABO Rh A Positive [facility] OTHER 09/17/2024 6:20 AM RETAIL MANAGEMENT KEYHOLDER 09/17/2024 6:30 AM RETAIL MANAGEMENT KEYHOLDER Yury Titus MD LAB BLOOD ORDERABLES Final R esult MICHELLE [facility] [place] [address] [facility] from Last 3 Months Insurance MEDICARE [facility] MEDICARE [facility] MEDICARE [facility] Advance Directives For more information, please contact: [phone] Documents on File Type Date Recorded Patient Marine Technician Expl anation ADVANCE DIRECTIVE 09/24/2024 6:02 PM [employer] ADVANCE DIRECTIVE 09/18/2024 2:45 PM [employer]ICAL * Full Code (Latest Code Status on File) Date Activated Date Inactivated Comments 09/17/2024 1:07 PM 09/20/2024 7:41 PM * Full Code Date Activated Date Inactivated Comments 04/04/2022 9:28 AM 04/04/2022 7:29 PM * Full Code Date Activated Date Inactivated Comments 08/03/2021 4:19 PM 08/04/2021 12:18 AM Care Teams Email Engineer Relationship Specialty Start Date End Date Saurabh Contreras MD [address] [address] PCP - General 07/06/21 [place] [id number] [facility] [address] [facility] [place] [address] [address] Consulting Physician Vascular Surgery 09/20/24
--- OUTSIDE RECORDS SUMMARY | 2024-12-14 12:12 | XMS_ITS | Clinical Summary ---
Author Organization [facility] Address [address] [address] Phone Care Team Providers Care Bobbin Cleaner Hand Name Role Phone Saurabh Contreras MD Primary Care Provider [phone] Allergies Active Allergy Reactions Criticality Noted Date Comments Vitamin D (Calciferol) Other (see Comments) 07/09/2017 Myalgias & leg cramps with 50,000 u. Medications Ascorbic Acid (VITAMIN C PO) Take by mouth. Active Cholecalciferol (VITAMIN D3 PO) Take by mouth. Active acetaminophen (TYLENOL) 325 MG Tablet Take 1 Tab by mouth every 6 hours as needed for Fever (for temperature greater than 100.4 F.). Do not exceed 4000 mg of acetaminophen in 24 hour from all sources. 10/06/20 20 Active clopidogrel (PLAVIX) 75 MG Tablet Take 75 mg by mouth daily. 08/18/20 22 Active Cyanocobalamin (B-12) 1000 MCG Capsule Take 1,000 mcg by mouth daily. 90 Capsule 3 06/13/20 23 Active atorvastatin (LIPITOR) 80 MG Tablet 12/26/19 24 Active ezetimibe (ZETIA) 10 MG Tablet Take 1 Tablet by mouth daily. 03/09/20 24 Active fluticasone (FLONASE) 50 MCG/ACT Suspension 1-2 Sprays by Nasal route daily. Use in each nostril as directed. 16 g 1 07/16/20 Active oxyCODONE (ROXICODONE) 5 MG TabletIndications :History of endarterectomy Take 1 Tablet by mouth every 12 hours as needed for Moderate or more severe pain. 12 Tablet 09/23/20 025 Discontin ued(Med List Clean Up) Active Problems Problem Noted Date Diagnosed Date Ex-smoker 12/10/2024 Cerumen debris on tympanic membrane of left ear 12/10/2024 Chronic anticoagulation 07/16/2024 Seasonal allergies 02/12/2024 Bilateral impacted cerumen 02/12/2024 Bilateral hearing loss due to cerumen impaction 12/25/2023 Noncompliance 03/13/2023 PVD (peripheral vascular disease) 09/11/2021 Effusion of left elbow 09/11/2021 Left elbow pain 09/11/2021 S/P left inguinal hernia repair 10/19/2020 Renal lesion 08/20/[address] of the abdomen 08/20/2020 Colon wall thickening 08/20/2020 Hematuria 08/09/2020 Hyperglycemia 07/05/2020 Skin lesion of scalp 07/05/2020 Non-recurrent inguinal herni a of left side without obstruction or gangrene 07/05/2020 Hyperlipidemia 04/07/2020 Chronic joint pain 07/28/2019 Splenic lesion 06/09/2017 Abdominal aortic aneurysm (A AA) 3.0 cm to 5.5 cm in diameter in male 06/09/2017 Liver lesion 04/21/2017 Lung nodules 04/21/2017 Pulmonary emphysema 04/21/2017 Vitamin D deficiency 03/31/2017 B12 deficiency 03/31/2017 Tobacco abuse 02/18/2017 Family history of diabetes mellitus (DM) 017 History of colon polyps 02/18/2017 Nocturia 02/18/2017 Bilateral hearing loss 02/18/2017 Encounters Date Type Department Care Team Description 12/10/2024 4:15 PM BAGGAGE CHECKER Office Visit [facility] - Family [facility] [address] [place] [id number] Saurabh Contreras MD Cerumen debris on tympanic membrane of left ear (Primary Dx); Ex-smoker; B12 deficiency; Hyperlipidemia, unspecified hyperlipidemia type; Hyperglycemia Discharge Disposition: Discharged to home or Selfcare 12/10/2024 Travel 09/23/2024 12:45 PM BAGGAGE CHECKER Office Visit [facility] [address] [place] [address] Ricarda Ruelas, RESPIRATORY TECHNICIAN, SUPERINTENDENT TRANSPORTATION PVD (peripheral vascular disease) (HCC) (Primary Dx); History of endarterectomy; Hyperlipidemia, unspecified hyperlipidemia type; Tobacco abuse Discharge Disposition: Discharged to home or Selfcare 09/23/2024 Travel from Last 3 Months Immunizations Immunization Administration Dates Next Due Covid-19, Mrna, Lnp-s, PF, 1 00 mcg/0.5 mL Dose (Moderna) 01/27/2021,12/30/2020 Influenza Vaccine 07/18/2015 Influenza Vaccine greater than 3 yrs 08/09/2017 Influenza Vaccine, Quadrivalent, PF 08/28,09/11/2021,07/05/2020,2018,09/03/2018,07/25/2016 Influenza, High-dose, Quadrivalent 09/11/2023, Influenza, Injectable, Quadrivalent 11/10/2013 Influenza, Seasonal, Injecta ble, Undefined 08/09/2017 Influenza, high-dose, trivalent, PF 07/14/2024,0 07/24/2017 Pneumococcal Vaccine - 13 Valent 02/05/2018 Pneumococcal Vaccine Adult - 23 Valent 12/08/2019 RSV, Recombinant, Protein Abdalla bunit Rsvpref, Adjuvant Recon (Arexvy) 11/13/2023 Zoster Vaccine Recombinant 12/15/2022 Family History Medical History Relation Name Comments No Known Problems Daughter Pacemaker Father Dementia Mother Frances Diabetes Mother Frances Diabetes Sister 1 Diabetes Sister 2 No Known Problems Son Relation Name Status Comments Brother 1 Alive Brother 2 Alive Daughter Alive Father Mother Frances Sister 1 Alive Sister 2 Alive Son Alive Social History Tobacco Use Types Packs/Day Years Used Date Smoking Tobacco: Former Cigarettes 0.3 50 1 10/2023 - 1964 Smokeless Tobacco: Never Tobacco Cessation:Counseling Given: Yes Alcohol Use Standard Drinks/Week Comments Yes 3 (1 standard drink = 0.6 oz pur e alcohol) Occasionally iHandle Utilities Answer Date Recorded In the past 12 months has e [employer], oil, or water [employer] threatened to shut off services in your home? No 07/16/2024 Social Connection and Isolat ion Panel [NHANES] Answer Date Recorded In a typical week, how many times do you talk on the phone with family, friends, or neighbors? More than three times a week 07/16/2024 How often do you get togethe r with friends or relatives? More than three times a week 07/16/2024 How often do you attend chur ch or uatsdin services? Never 07/16/2024 Do you belong to any clubs o r organizations such as religious groups, unions, fraternal or athletic groups, or school groups? No 07/16/2024 How often do you attend meet ings of the clubs or organizations you belong to? Never 07/16/2024 Are you , , di vorced, , never , or living with a partner? 07/16/2024 AUDIT-C Answer Date Recorded Q1: How often do you have a drink containing alc ohol? 2-4 times a month 07/16/2024 Q2: How many drinks containi ng alcohol do you have on a typical day when you are drinking? 1 or 2 07/16/2024 Q3: How often do you have si x or more drinks on one occasion? Never 07/16/2024 Overall Financial Resource Strain (CARDIA) Answe r Date Recorded How hard is it for you to pa y for the very basics like food, housing, medical care, and heating? Not hard at all 07/16/2024 PHQ-2 Answer Date Recorded Total Score - Questions 1-9 0 11/28 [facility] - Occupational Stress Questionnaire Answer Date Recorded Do you feel stress - tense, restless, nervous, or anxious, or unable to sleep at night because your mind is troubled all the time - these days? Not at all 07/16/2024 Exercise Vital Sign Answer Date Recorde d On average, how many days pe r week do you engage in moderate to strenuous exercise (like a brisk walk)? 7 days 07/16/2024 On average, how many minutes do you engage in exercise at this level? 20 min 07/16/2024 Hunger Vital Sign Answer Date Recorded Within the past 12 months, y ou worried that your food would run out before you got the money to buy more. Never true 07/16/20 24 Within the past 12 months, t he food you bought just didn't last and you didn't have money to get more. Never true 07/16/2024 PRAPARE - Transportation Answer Date Re corded In the past 12 months, has l ack of transportation kept you from medical appointments or from getting medications? No 06/28 In the past 12 months, has l ack of transportation kept you from meetings, work, or from getting things needed for daily living? No 07/16/2024 Housing Stability Vital Sign Answer Hood e Recorded In the last 12 months, was t here a time when you were not able to pay the mortgage or rent on time? Patient declined 12/25/19 24 Number of Places Lived in the Last Year Not on f ile 12/25/2023 In the last 12 months, was t here a time when you did not have a steady place to sleep or slept in a long term (including now)? Patient declined 12/25/2023 Housing Stability Vital Sign Answer Hood e Recorded In the last 12 months, was t here a time when you were not able to pay the mortgage or rent on time? No 07/16/2024 In the past 12 months, how m any times have you moved where you were living? 0 07/16/2024 At any time in the past 12 m [facility], were you homeless or living in a long term (including now)? No 07/16/2024 Education Answer Date Recorded What is the highest level of school you have completed or the highest degree you have received? 12th grade 06/13/2023 Sexually Active Control Partners Comments Not Currently Female Sex and Gender Information Value Date Recorded Sex Assigned at Not on file Legal Sex Male 12:44 PM BAGGAGE CHECKER Gender Identity Not on file Sexual Orientation Not on file Last Filed Vital Signs Vital Sign Reading Time Taken Comments Blood Pressure 130/72 12/10/2024 3:50 PM BAGGAGE CHECKER Pulse 77 12/10/2024 3:50 PM BAGGAGE CHECKER Temperature 36.8 C (98.3 F) 12/10/2024 3:50 PM BAGGAGE CHECKER Respiratory Rate 18 09/23/2024 12:48 PM BAGGAGE CHECKER Oxygen Saturation 97% 12/10/2024 3:50 PM BAGGAGE CHECKER Inhaled Oxygen Concentration - - Weight 73 kg (161 lb) 12/10/2024 3:50 PM BAGGAGE CHECKER Height 182.9 cm (6') 12/10/2024 3:50 PM BAGGAGE CHECKER Body Mass Index 21.84 12/10/2024 3:50 PM BAGGAGE CHECKER Plan of Treatment Upcoming Encounters Date Type Department Care Team (Late st Contact Info) Description 06/09/2025 1:15 PM CDT Office Visit [facility] - Family Medicine [facility] [address] [place] [address] Saurabh Contreras MD [address] [address] Health Maintenance Due Date Last Done Comments TdaP Immunization 1950 Cologuard 01/31/2002 Immunochemical Fecal Occult Blood 01/31/2002 Zoster Immunization (2 of 2) 02/09/2023 12/15/2022 SARS-COV-2 Immunization ( season) 2025 07/14/2024, 11/13/2023, 12/15/2022, Additional history exists Colonoscopy 06/01/2025 06/01/2020, 04/03/2012 Colorectal Cancer Screening 06/01/2025 06/01/2020, 04/03/2012 Hepatitis C Virus (HCV) Screening Completed 03/18/2017 Pneumococcal Immunization (50+ years) Completed 12/08/2019, 02/05/2018 Pneumococcal Immunization Combined Discontinued 12/08/2019, 02/05/2018 AAA Screening Ultrasound Completed 021, 04/26/2020, 08/05/2019, Additional history exists Respiratory Syncytial Virus (RSV) Immunization (Adult) Completed 11/13/2023 PSA Discussion Discontinued 04/08/2024, 02/25, 06/24/2021, Additional history exists Influenza Immunization Completed , 09/11/2023, 09/11/2023, Additional history exists Hepatitis B Immunization Aged Out No longer eligible based on patient's age to complete this topic Meningococcal Immunization (ACWY) Aged Out No longer eligible based on patient's age to complete this topic Rotavirus Immunization Aged Out No lo nger eligible based on patient's age to complete this topic Medical Devices Implanted Type Area Cataloging Assistant Device Identifier Shelf Expiration Date Model / Serial / Lot Mesh Srg Bard Marlex 6x3in Groin Mfl Gold Std Flat Sheet Strl Polyp Rectangle Inguinal Hernia Repair - [id number] Implanted:Qty: 1 on 10/06/2020 by Bonifacio Olivas MD at [facility] IMPLANT Left: Groin [employer] 07/25/2024 [id number] / [id number] / [id number] Procedures Procedure Name Priority Date/Time Associated Diagnosis Comments PSA SCREEN Routine 04/08/2024 2:55 PM CDT Screening for prostate cancer US AORTA MERIDA SCALE ONLY Routine 03/13/2021 10:53 AM CDT Abdominal aortic aneurysm (AAA) 3.0 cm to 5.5 cm in diameter in male (HCC) HEPATITIS C ANTIBODY Routine 03/18/2017 Encounter for hepatitis C screening test for low risk patient HM COLONOSCOPY Routine 04/03/2012 from Last 3 Months or Most Recently Relevant to Health Maintenance Results * PSA SCREEN (04/08/2024 2:55 PM CDT) PSA SCREEN, TOTAL 0.68 <4.00 ng/mL 04/08/2024 4:34 PM CDT [facility] Blood Venipuncture / Unknown 04/08/2024 2:55 PM CDT 04/08/2024 2:55 PM CDT Narrative [facility] - 04/08/2024 4:34 PM CDT The ALINITY Total PSA assay is a Chemiluminescent Microparticle Immunoassay (CMIA) for the quantitative determination of total PSA (both free PSA and PSA complexed to [id number]) in human serum. Total PSA values obtained with different assay methods, including Santa PSA assays, cannot be used interchangeably. us Saurabh Contreras MD CHEMISTRY ORDERABLES Final Result [facility] [address] [facility] [place] [address] * US AORTA MERIDA SCALE ONLY (03/13/2021 10:53 AM CDT) Anatomical Region Laterality Modality vascular N/A Ultrasound 03/13/2021 11:0 8 AM CDT Impressions 03/13/2021 11:10 AM CDT IMPRESSION: 1. Slight interval increase in size of infrarenal abdominal aortic aneurysm compared to prior ultrasound from March 2020. Maximum dimension on this study is 4.5 cm. On more recent MRI examination from August 2020, a maximum dimension of 4.[address] angiography be utilized for further assessment as warranted clinically. Narrative 03/13/2021 11:10 AM CDT EXAM DESCRIPTION: US AORTA MERIDA SCALE ONLY REASON FOR STUDY: Follow-up abdominal aortic aneurysm. TECHNIQUE: Grayscale images acquired of the aorta and stored on PACS. Selected color Doppler and spectral images recorded. COMPARISON: Ultrasound dated 08/05/2019 and 03/30/2020 FINDINGS: AORTIC CALIBER MAXIMAL PROXIMAL: 1.8 x 2.2 cm. MID: 1.8 x 2.3 cm. DISTAL: 4.1 x 4.5 cm. There is underlying mural thrombus again demonstrated within the distal abdominal aorta which has increased in size compared to 3.8 x 4.3 cm on the prior study as remeasured today using similar technique utilized on the current examination. The aneurysmal dilation extends for a craniocaudal dimension of approximately 6 cm. ILIAC DIAMETER RIGHT: 1.0 x 0.8 cm. LEFT: 0.9 x 1.0 cm. OTHER: No other significant finding. THIS IS AN ELECTRONICALLY VERIFIED FINAL REPORT 03/13/2021 11:08 AM - Electronically signed by Sheeba Quintana M.D. TB: RAMIRO Report ID: [id number] Reading Location: [facility] Procedure Note Sheeba Quintana MD - 03/13/2021 EXAM DESCRIPTION: US AORTA MERIDA SCALE ONLY REASON FOR STUDY: Follow-up abdominal aortic aneurysm. TECHNIQUE: Grayscale images acquired of the aorta and stored on PACS. Selected color Doppler and spectral images recorded. COMPARISON: Ultrasound dated 08/05/2019 and 03/30/2020 FINDINGS: AORTIC CALIBER MAXIMAL PROXIMAL: 1.8 x 2.2 cm. MID: 1.8 x 2.3 cm. DISTAL: 4.1 x 4.5 cm. There is underlying mural thrombus again demonstrated within the distal abdominal aorta which has increased in size compared to 3.8 x 4.3 cm on the prior study as remeasured today using similar technique utilized on the current examination. The aneurysmal dilation extends for a craniocaudal dimension of approximately 6 cm. ILIAC DIAMETER RIGHT: 1.0 x 0.8 cm. LEFT: 0.9 x 1.0 cm. OTHER: No other significant finding. THIS IS AN ELECTRONICALLY VERIFIED FINAL REPORT 03/13/2021 11:08 AM - Electronically signed by Sheeba Quintana M.D. TB: RAMIRO Report ID: [id number] Reading [facility] IMPRESSION: 1. Slight interval increase in size of infrarenal abdominal aortic aneurysm compared to prior ultrasound from March 2020. Maximum dimension on this study is 4.5 cm. On more recent MRI examination from August 2020, a maximum dimension of 4.[address] angiography be utilized for further assessment as warranted clinically. Saurabh Contreras MD [facility] US ORDERABLES Final Res ult * HEPATITIS C ANTIBODY (03/18/2017) Blood specimen (specimen) Saurabh Contreras MD CHEMISTRY ORDERABLES Final Result * HM COLONOSCOPY (04/03/2012) Heath Hardin MD PROCEDURE/MINOR SURGICAL ORDERABLES Final Result from Last 3 Months or Most Recently Relevant to Health Maintenance Insurance MEDICARE [facility] Care Teams Bobbin Cleaner Hand Relationship Specialty Start Date End Date Saurabh Contreras MD [address] [address] PCP - General Family Medicine 02/18/17
--- OUTSIDE RECORDS SUMMARY | 2024-12-14 12:12 | XMS_ITS | Clinical Summary ---
Author Organization [facility] Medical Office Building A Address [address] [place] [address] Care Team Providers Care Chemical Checker Name Role Phone Saurabh Contreras MD Primary Care Provider [phone] Yury Titus MD Unavailable [phone] Allergies No known active allergies Medications cyanocobalamin (Vitamin B-12) 500 mcg tablet Take 1 tablet (500 mcg total) by mouth gill tender before breakfast Active ascorbic acid (VITAMIN C) 1,000 mg tablet Take 1 tablet (1,000 mg total) by mouth gill tender before breakfast Active cholecalcifero l (VITAMIN D-3) 25 mcg (1,000 unit) tablet Take 1 tablet (1,000 Units total) by mouth gill tender before breakfast Active aspirin 81 mg chewable [...] by mouth daily 30 tablet 07/20/20 24 025 Active Additional Information Patient taking differently:10 [...] 08/17/2024 Assessment & Plan (09/19/2024 11:29 AM SURVEYING CREW STAKE RUNNER): Recent CT angiogram shows 5.5 cm abdominal aortic aneurysm. Presents for hybrid intervention for AAA repair and PVD. - 09/17: OR s/p B/L SALES REPRESENTATIVE PRINTING PAPER cutdown (L SALES REPRESENTATIVE PRINTING PAPER repaired primarliy; R SALES REPRESENTATIVE PRINTING PAPER-SFA patch angioplasty at end of case); EVAR; L external iliac stenting and angioplasty - Normotensive blood pressure goal - OOB POD1 - ADAT - Pain control - PT/OT recs pending Carotid stenosis, bilateral 01/13/2024 Primary hypertension 02/26/2022 Assessment & Plan (09/17/2024 8:44 AM SURVEYING CREW STAKE RUNNER): Not on medications. - monitor BP PVD (peripheral vascular disease) 07/25/2021 Overview (07/25/2021): Added automatically from request for surgery [id number] Assessment & Plan (09/19/2024 11:28 AM SURVEYING CREW STAKE RUNNER): Hx of right external iliac artery stent that extends into the right common femoral artery along with right popliteal artery stent with Dr Smith at [facility] (07/2021). - 09/17: OR s/p B/L SALES REPRESENTATIVE PRINTING PAPER cutdown (L SALES REPRESENTATIVE PRINTING PAPER repaired primarliy; R SALES REPRESENTATIVE PRINTING PAPER-SFA patch angioplasty at end of case); EVAR; L external iliac stenting and angioplasty - continue asa, statin. Plavix on hold. - will resume plavix upon discharge Hyperlipidemia 04/07/2020 Assessment & Plan (09/17/2024 8:22 AM SURVEYING CREW STAKE RUNNER): - continue atorvastatin, ezetimibe Abdominal aortic aneurysm (A AA) 3.0 cm to 5.5 cm in diameter in male 06/09/2017 Splenic lesion 06/09/2017 Pulmonary emphysema 04/21/2017 Vitamin D deficiency 03/31/2017 Tobacco abuse 02/18/2017 Assessment & Plan (09/17/2024 1:51 PM SURVEYING CREW STAKE RUNNER): Has not smoked in 3 mo. - encourage cessation - NRT Encounters Date Type Department Care Team Description 10/19/2024 11:15 AM SURVEYING CREW STAKE RUNNER Office Visit [facility] Surgery [address] [facility] [address] [address] Yury Titus MD Infrarenal abdominal aortic aneurysm (AAA) without rupture (HCC) (Primary Dx); PVD (peripheral vascular disease) (HCC); Atherosclerosis of [place] artery of both lower extremities with intermittent claudication (HCC); Tobacco abuse 10/19/2024 8:59 AM SURVEYING CREW STAKE RUNNER - 10/19/2024 11:59 PM SURVEYING CREW STAKE RUNNER Hospital Encounter Vascular Lab [id number] [place] [address] Encounter for surgical aftercare following surgery on the circulatory system Discharge Disposition: Discharge to home or self care 10/19/2024 8:48 AM SURVEYING CREW STAKE RUNNER - 10/19/2024 11:59 PM SURVEYING CREW STAKE RUNNER Hospital Encounter Imaging and Radiology [address] [place] [address] Encounter for surgical aftercare following surgery on the circulatory system; Infrarenal abdominal aortic aneurysm (AAA) without rupture (HCC) Discharge Disposition: Discharge to home or self care 09/22/2024 Orders Only [facility] Surgery [address] [facility] [address] [place] [id number] Yuyr Titus MD Encounter for surgical aftercare following surgery on the circulatory system (Primary Dx); Infrarenal abdominal aortic aneurysm (AAA) without rupture (HCC) 09/17/2024 7:30 AM SURVEYING CREW STAKE RUNNER - 09/17/2024 1:45 PM SURVEYING CREW STAKE RUNNER Surgery [facility] Operating Room [address] [place] [address] Yury Titus MD RIGHT FEMORAL ENDARTERECTOMY 09/17/2024 7:23 AM SURVEYING CREW STAKE RUNNER Anesthesia Event [facility] Operating Room [address] [place] [address] Bigg Martinez MD Rupert, Denisa White MD PhD 09/17/2024 5:41 AM SURVEYING CREW STAKE RUNNER - 09/20/2024 3:30 PM SURVEYING CREW STAKE RUNNER Hospital Encounter [address] [address] Yury Titus MD Infrarenal abdominal aortic aneurysm (AAA) without rupture (HCC); PVD (peripheral vascular disease) (HCC) Discharge Disposition: Discharge to home or self care from Last 3 Months Immunizations Immunization Administration Dates Next Due Influenza, Quadrivalent, Spl it, Intramuscular 11/10/2013 Influenza, Quadrivalent, Spl it, Preservative Free, Intramuscular 09/11/2021,07/05/2020,07/28/2019,09/03,07/25/2016 Influenza, Trivalent, High D ose, Split, Preservative Free, Intramuscular 07/24/2017 Influenza, Trivalent, IM (MDV) 08/09/2017 Influenza, Trivalent, Preser vative Free, Intramuscular 07/18/2015 Influenza, Unspecified 08/09/2017 Pneumococcal Conjugate PCV 13 02/05/2018 Pneumococcal Polysaccharide PPV23 12/08/2019 Surgical History Surgery Date Site/Laterality Comments FEMORAL ARTERY STENT Bilateral HERNIA REPAIR RETINA SURGERY Right CATARACT EXTRACTION Bilateral Medical History Medical History Date Comments Awareness under anesthesia Bilateral 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 Peripheral artery disease (HCC) Aneurysm (CMS/HCC) (HCC) Family History Medical History Relation Name Comments Peripheral vascular disease Father Diabetes Mother Relation Name Status Comments Father Mother Social History Tobacco Use Types Packs/Day Years [...] on file Legal Sex Male 6:57 AM SURVEYING CREW STAKE RUNNER Gender Identity Not on file Sexual Orientation Not on file Obstetrics History Last Filed Vital Signs Vital Sign Reading Time Taken Comments Blood Pressure 129/84 10/19/2024 10:18 AM SURVEYING CREW STAKE RUNNER Pulse 78 10/19/2024 10:18 AM SURVEYING CREW STAKE RUNNER Temperature 37.6 C (99.6 F) 09/20/2024 11:31 AM SURVEYING CREW STAKE RUNNER Respiratory Rate 18 09/20/2024 11:3 1 AM SURVEYING CREW STAKE RUNNER Oxygen Saturation 99% 10/19/2024 10: 18 AM SURVEYING CREW STAKE RUNNER Inhaled Oxygen Concentration - - Weight 68.4 kg (150 lb 12.7 oz) 024 10:18 AM SURVEYING CREW STAKE RUNNER Height 182.9 cm (6') 10/19/2024 10:18 AM SURVEYING CREW STAKE RUNNER Body Mass Index 20.45 10/19/2024 10:18 AM SURVEYING CREW STAKE RUNNER Plan of Treatment Health Maintenance Due Date Last Done Comments Colon Cancer Screening-Colonoscopy 1950 Depression Screening 1950 Hepatitis C Screening 1950 DTaP/Tdap/Td Vaccine (1 - Tdap) 01/31/1963 Hepatitis B Screening 01/31/1970 Well Visit 65+ 01/31/2017 Lung Cancer Screening 08/31/2021 08/31/2020 Zoster Vaccine (2 of 2) 02/09/2023 12/15/2022 Covid-19 Vaccine (2023-2 5 season) 2024 10/18/2021, 01/27/2021, 12/30/2020 Fall Risk Assessment 09/20/2025 09/20/2024 Pneumococcal vaccine 65+ Completed 12/08/2019, 01/26 Influenza Vaccine Completed 07/14/2024, , 09/11/2021, Additional history exists Abdominal Aortic Aneurysm (A AA) Screen Completed 10/19/2024, 10/19/2024, 10/19/2024, Additional history exists Medical Devices Implanted Type Area Habitat Management Coordinator Device Identifier Shelf Expiration Date Model / Serial / Lot [employer] Jarod Stent Graft Aortic Bifurcated Main Body [id number] Treo Polyester Nitinol 15-G1-52-100u - [id number] Implanted:Qty: 1 on 09/17/2024 by Yury Titus MD at [facility] Stent N/A: Aorta [employer] Jarod 03/19/2027 28-B2-28- 100U / / [id number] [employer] Jarod Stent Graft Iliac Leg Extension 13/79m802pf Treo Polyester Nitinol 65-Y1-79-120u - [id number] Implanted:Qty: 1 on 09/17/2024 by Yury Titus MD at [facility] Stent Right: Common Iliac Artery [employer] Jarod 05/14/2027 28-L2-13- 120U / / [id number] [employer]od Stent Graft Iliac Leg Extension 13/93x501ei Treo Polyester Nitinol 19-J8-90-120u - [id number] Implanted:Qty: 1 on 09/17/2024 by Yury Titus MD at [facility] Stent Left: Common Iliac Artery [employer] Jarod 04/25/2027 28-L2-13- 120U / / [id number] [employer] Everflex 8mm 60mm 80cm 3 Wave Peak Self Expand Flexible Spiral [id number] 80 - [id number] Implanted:Qty: 1 on 09/17/2024 by Yury Titus MD at [facility] Stent Left: External Iliac Artery Medtronic Inc [id number] 08/13/2027 GIG93-89- 060-080 / / [id number] Medtronic Inc Everflex Entrust 8mm 80mm 120cm Self Expand Triaxial Low Profile - [id number] Implanted:Qty: 1 on 08/03/2021 by Triston Smith MD at [facility] Medtronic Inc 12/30/2022 [id number] 080-120 / / [id number] Daig Jarod/[employer] [id number] Angio-Seal Evolution 6fr .035in Guidewire Bypass Tube Suture - [id number] Implanted:Qty: 1 on 08/03/2021 by Triston Smith MD at [facility] Terum[employer] Jarod 03/27/2022 [id number] / / [id number] [employer] Inc [id number] Zilver Ptx 6mm 100mm 125cm Otw Preload Delivery System Self - [id number] Implanted:Qty: 1 on 08/03/2021 by Triston Smith MD at [facility] [employer] 04/27/2023 [id number] / / [id number] Medtronic Inc Everflex Entrust 7mm 40mm 120cm Self Expand Triaxial Low Profile - [id number] Implanted:Qty: 1 on 08/03/2021 by Triston Smith MD at [facility] Medtronic Inc 03/28/2024 [id number] 040-120 / / [id number] [employer] Jarod Synergy Xd Monorail 3mm 24mm 144cm Delivery System 1 Access Port [id number] - [id number] Implanted:Qty: 1 on 04/04/2022 by Triston Smith MD at [employer] 11/13/2023 [id number] / / [id number] [employer] Jarod Synergy Xd Monorail 2.75mm 16mm 144cm Delivery System 1 Access [id number] - [id number] Implanted:Qty: 1 on 04/04/2022 by Triston Smith MD at [employer] 08/29/2023 [id number] / / [id number] [employer] Stent Drug Eluting S Megatron Us Mr 3.41q27ps [id number] - [id number] Implanted:Qty: 1 on 04/04/2022 by Triston Smith MD at [employer] 11/13/2022 [id number] / / [id number] Angio-Seal Evolution 6fr Vascular Closure [id number] - [id number] Implanted:Qty: 1 on 04/04/2022 by Triston Smith MD at [employer] 09/26/2022 [id number] / / [id number] Jarod Patch Vascuguard 0.88cm Ba1159 - [id number] - [id number] Implanted:Qty: 1 on 09/17/2024 by Yury Titus MD at [facility] Left: Groin [employer] Jarod [id number] 04/23/2026 [id number] / [id number] / [id number] Procedures Procedure Name Priority Date/Time Associated Diagnosis Comments CTA ABDOMINAL AORTA AND BILATERAL ILIOFEMORAL RUNOFF Schedule Routine, Read Routine (OP Routine) 10/19/2024 10:00 AM SURVEYING CREW STAKE RUNNER Encounter for surgical aftercare following surgery on the circulatory system Infrarenal abdominal aortic aneurysm (AAA) without rupture (HCC) FAB Schedule Routine, Read Routine (OP Routine) 10/19/2024 9:31 AM SURVEYING CREW STAKE RUNNER Encounter for surgical aftercare following surgery on the circulatory system CBC WITHOUT DIFFERENTIAL Timed 09/20/2024 5:56 AM SURVEYING CREW STAKE RUNNER EGFR Routine 09/19/2024 12:13 AM SURVEYING CREW STAKE RUNNER BASIC METABOLIC PANEL Routine 09/19/2024 12:13 AM SURVEYING CREW STAKE RUNNER CBC WITHOUT DIFFERENTIAL Routine 09/19/2024 12:13 AM SURVEYING CREW STAKE RUNNER EGFR Routine 09/17/2024 10:47 PM SURVEYING CREW STAKE RUNNER BASIC METABOLIC PANEL Routine 09/17/2024 10:47 PM SURVEYING CREW STAKE RUNNER CBC WITHOUT DIFFERENTIAL Routine 09/17/2024 10:47 PM SURVEYING CREW STAKE RUNNER POCT GLUCOSE DEVICE Routine 09/17/2024 8 :42 PM SURVEYING CREW STAKE RUNNER DIFFERENTIAL AUTO Routine 09/17/2024 12: 21 PM SURVEYING CREW STAKE RUNNER CBC WITH AUTO DIFFERENTIAL Routine 09/17/2024 12:21 PM SURVEYING CREW STAKE RUNNER CV HYBRID ROOM (DEFAULT ORDERABLE) Routine 09/17/2024 12:00 PM SURVEYING CREW STAKE RUNNER Infrarenal abdominal aortic aneurysm (AAA) without rupture (HCC) PVD (peripheral vascular disease) (HCC) VASCULAR SURGERY PROCEDURE Routine 09/17/2024 12:00 PM SURVEYING CREW STAKE RUNNER Infrarenal abdominal aortic aneurysm (AAA) without rupture (HCC) PVD (peripheral vascular disease) (HCC) POCT ACTIVATED CLOTTING TIME, LOW RANGE Routine 09/17/2024 11:18 AM SURVEYING CREW STAKE RUNNER POCT ACTIVATED CLOTTING TIME, LOW RANGE Routine 09/17/2024 11:02 AM SURVEYING CREW STAKE RUNNER POCT ACTIVATED CLOTTING TIME, LOW RANGE Routine 09/17/2024 10:39 AM SURVEYING CREW STAKE RUNNER POCT ACTIVATED CLOTTING TIME, LOW RANGE Routine 09/17/2024 10:04 AM SURVEYING CREW STAKE RUNNER POCT ACTIVATED CLOTTING TIME, LOW RANGE Routine 09/17/2024 9:33 AM SURVEYING CREW STAKE RUNNER POCT ACTIVATED CLOTTING TIME, LOW RANGE Routine 09/17/2024 9:01 AM SURVEYING CREW STAKE RUNNER TX AN PROCEDURE PLACEHOLDER Routine 09/17/2024 8:30 AM SURVEYING CREW STAKE RUNNER TX AN PROCEDURE PLACEHOLDER Routine 09/17/2024 8:28 AM SURVEYING CREW STAKE RUNNER TX AN ELECTIVE ENDOTRACHEAL AIRWAY Routine 09/17/2024 8:28 AM SURVEYING CREW STAKE RUNNER POC BLOOD GAS AND CHEMISTRIES, ARTERIAL Routine 09/17/2024 8:28 AM SURVEYING CREW STAKE RUNNER POCT ACTIVATED CLOTTING TIME, LOW RANGE Routine 09/17/2024 8:07 AM SURVEYING CREW STAKE RUNNER PREPARE RBC STAT 09/17/2024 7:54 AM SURVEYING CREW STAKE RUNNER PLACEMENT STENT - ILIAC ARTERY - HYBRID ROOM 09/17/2024 7:28 AM SURVEYING CREW STAKE RUNNER Infrarenal abdominal aortic aneurysm (AAA) without rupture (HCC) PVD (peripheral vascular disease) ([facility]) POC BLOOD GAS AND CHEMISTRIES, ARTERIAL Routine 09/17/2024 6:22 AM SURVEYING CREW STAKE RUNNER B CHECK SAMPLE STAT 09/17/2024 6:20 AM SURVEYING CREW STAKE RUNNER from Last 3 Months Results * CTA Abdominal Aorta And Bilateral Iliofemoral Runoff (10/19/2024 10:00 AM SURVEYING CREW STAKE RUNNER) Anatomical Region Laterality Modality Body Bilateral Computed Tomogra phy 10/19/2024 11:0 8 AM SURVEYING CREW STAKE RUNNER Impressions 10/19/2024 11:08 AM SURVEYING CREW STAKE RUNNER New aortobiiliac endovascular stent graft. Stable 58 mm infrarenal abdominal aortic aneurysm. Type II endoleak at the inferior mesenteric artery. Atherosclerotic disease in the lower extremity arteries. Electronically signed by: Abel May M.D. Narrative 10/19/2024 11:08 AM SURVEYING CREW STAKE RUNNER EXAMINATION: CTA ABDOMINAL AORTA AND BILATERAL ILIOFEMORAL [...] is noted in the right popliteal artery [id number]. Approximately 50% focal in-stent stenosis is noted [...] is noted in the right popliteal artery [id number]. Approximately 50% focal in-stent stenosis is noted [...] arteries. Electronically signed by: Abel May M.D. Yury Titus MD IMEsme CT PROCEDURES Final Resu lt * US FAB (10/19/2024 9:31 AM SURVEYING CREW STAKE RUNNER) Anatomical Region Laterality Modality Vascular N/A Ultrasound 10/19/2024 1:42 PM SURVEYING CREW STAKE RUNNER Impressions 10/19/2024 1:42 PM SURVEYING CREW STAKE RUNNER RIGHT LEG: Interval loss of signal in [...] Earnestine James MD Narrative 10/19/2024 1:42 PM SURVEYING CREW STAKE RUNNER EXAMINATION: BILATERAL LOWER EXTREMITY ANKLE BRACHIAL INDEX [...] (ABNORMAL) CBC without differential (09/20/2024 5:56 AM SURVEYING CREW STAKE RUNNER) WBC 13.7(H) 3.8 - 9.9 K/cumm Hgb 11.0(L) 13.0 - 17.5 g/dL [facility] Hct 33.1(L) 38.9 - 50.3 % [facility] Plt 137(L) 150 - 400 K/cumm [facility] MPV 10.9 9.1 - 12.3 fL [facility] RBC 3.50(L) 4.30 - 5.80 M/cumm [facility] MCV 94.6 81.3 - 96.4 fL [facility] MCH 31.4 27.1 - 33.3 pg [facility] MCHC 33.2 32.3 - 35.7 g/dL [facility] RDW CV 13.0 11.1 - 14.9 % [facility] RDW SD 45.1 35.7 - 48.1 fL [facility] NRBC abs 0.00 0.00 - 0.01 K/cumm [facility] Blood 09/20/2024 5:56 AM SURVEYING CREW STAKE RUNNER 09/20/2024 6:28 AM SURVEYING CREW STAKE RUNNER Yury Titus MD LAB BLOOD ORDERABLES Final R esult Performing Organization Address City/[facility] Co de Phone Number [facility] Department [place] [address] * eGFR (09/19/2024 12:13 AM SURVEYING CREW STAKE RUNNER) eGFR 73 >=60 mL/min/1. 73 m2 Comment: [...] of Race in Diagnosing Kidney Disease, JASN 2020). The CKD-EPI equation should not be used for patients with unstable renal function and has not been validated in children and those over 70. Current interpretive data was last reviewed 2021. Blood 09/19/2024 12:1 3 AM SURVEYING CREW STAKE RUNNER 09/19/2024 12:56 AM SURVEYING CREW STAKE RUNNER us Isabella Evans NP LAB BLOOD ORDERABLES Beth l Result Performing Organization Address [facility] Co de Phone Number [facility] Department [place] [address] * (ABNORMAL) CBC without differential (09/19/2024 12:13 AM SURVEYING CREW STAKE RUNNER) [facility] WBC 16.4(H) 3.8 - 9.9 K/cumm Hgb 11.0(L) 13.0 - 17.5 g/dL [facility] Hct 32.1(L) 38.9 - 50.3 % [facility] Plt 132(L) 150 - 400 K/cumm [facility] MPV 10.8 9.1 - 12.3 fL [facility] RBC 3.34(L) 4.30 - 5.80 M/cumm [facility] MCV 96.1 81.3 - 96.4 fL [facility] MCH 32.9 27.1 - 33.3 pg [facility] MCHC 34.3 32.3 - 35.7 g/dL [facility] RDW CV 12.9 11.1 - 14.9 % [facility] RDW SD 45.4 35.7 - 48.1 fL [facility] NRBC abs 0.00 0.00 - 0.01 K/cumm [facility] Blood 09/19/2024 12:1 3 AM SURVEYING CREW STAKE RUNNER 09/19/2024 12:58 AM SURVEYING CREW STAKE RUNNER Isabella Evans NP LAB BLOOD ORDERABLES Beth tony Result [facility] Department [place] [address] * Basic metabolic panel (09/19/2024 12:13 AM SURVEYING CREW STAKE RUNNER) [facility] Sodium 139 135 - 145 mmol/L Potassium, pl 4.0 3.3 - 4.9 mmol/L [facility] Chloride 104 97 - 110 mmol/L [facility] CO2 24 22 - 32 mmol/L [facility] Anion gap 11 2 - 15 mmol/L [facility] BUN 18 6 - 25 mg/dL [facility] Creatinine 1.08 0.80 - 1.30 mg/dL [facility] Glucose 107 70 - 199 mg/dL [facility] Comment: Interpretive Data Fasting glucose >/= 126 [...] 2022. Calcium 8.9 8.5 - 10.3 mg/dL [facility] Blood 09/19/2024 12:1 3 AM SURVEYING CREW STAKE RUNNER 09/19/2024 12:56 AM SURVEYING CREW STAKE RUNNER us Isabella Evans NP LAB BLOOD ORDERABLES Beth tony Result [facility] Department [place] [address] * eGFR (09/17/2024 10:47 PM SURVEYING CREW STAKE RUNNER) eGFR 68 >=60 mL/min/1. 73 m2 Comment: [...] of Race in Diagnosing Kidney Disease, JASN 2020). The CKD-EPI equation should not be used for patients with unstable renal function and has not been validated in children and those over 70. Current interpretive data was last reviewed 2021. Blood 09/17/2024 10:4 7 PM SURVEYING CREW STAKE RUNNER 09/17/2024 11:26 PM SURVEYING CREW STAKE RUNNER Yury Titus MD LAB BLOOD ORDERABLES Final R esult Performing Organization Address City/[facility]/ZIP Co de Phone Number [facility] Department [place] [address] * (ABNORMAL) CBC without differential (09/17/2024 10:47 PM SURVEYING CREW STAKE RUNNER) Pathologist [facility] WBC 13.5(H) 3.8 - 9.9 K/cumm Hgb 11.1(L) 13.0 - 17.5 g/dL [facility] Hct 32.8(L) 38.9 - 50.3 % [facility] Plt 138(L) 150 - 400 K/cumm [facility] MPV 10.8 9.1 - 12.3 fL [facility] RBC 3.45(L) 4.30 - 5.80 M/cumm [facility] MCV 95.1 81.3 - 96.4 fL [facility] MCH 32.2 27.1 - 33.3 pg [facility] MCHC 33.8 32.3 - 35.7 g/dL [facility] RDW CV 12.9 11.1 - 14.9 % [facility] RDW SD 45.1 35.7 - 48.1 fL [facility] NRBC abs 0.00 0.00 - 0.01 K/cumm [facility] Blood 09/17/2024 10:4 7 PM SURVEYING CREW STAKE RUNNER 09/17/2024 11:26 PM SURVEYING CREW STA[employer]NER Yury Titus MD LAB BLOOD ORDERABLES Final R esult [facility] Department [place] [address] * Basic metabolic panel (09/17/2024 10:47 PM SURVEYING CREW STAKE RUNNER) Pathologist [facility] Sodium 140 135 - 145 mmol/L Potassium, pl 4.0 3.3 - 4.9 mmol/L [facility] Chloride 106 97 - 110 mmol/L [facility] CO2 22 22 - 32 mmol/L [facility] Anion gap 12 2 - 15 mmol/L [facility] BUN 15 6 - 25 mg/dL [facility] Creatinine 1.14 0.80 - 1.30 mg/dL [facility] Glucose 112 70 - 199 mg/dL [facility] Comment: Interpretive Data Fasting glucose >/= 126 [...] 2022. Calcium 8.7 8.5 - 10.3 mg/dL [facility] Blood 09/17/2024 10:4 7 PM SURVEYING CREW STAKE RUNNER 09/17/2024 11:26 PM SURVEYING CRE[employer] STA[employer]NER Yury Titus MD LAB BLOOD ORDERABLES Final R esult Performing Organization Address City/[facility]/ZIP Co de Phone Number [facility] [place] [address] * POCT glucose (09/17/2024 8:42 PM SURVEYING CREW STAKE RUNNER) Glucose, POC 121 70 - 199 mg/dL Blood 09/17/2024 8:42 PM SURVEYING CREW STAKE RUNNER 09/17/2024 8:42 PM SURVEYING CREW STAKE RUNNER Yury Titus MD LAB POCT ORDERABLES - DEVICE Final Result Performing Organization Address City/[facility] Co de Phone Number [facility] Department [place] [address] * Differential, auto (09/17/2024 12:21 PM SURVEYING CREW STAKE RUNNER) Neutrophil abs 6.0 1.5 - 6.5 K/cumm Imm gran abs 0.1 0.0 - 0.1 K/cumm [facility] Lymphocyte abs 1.6 0.8 - 3.3 K/cumm [facility] Monocyte abs 0.8 0.2 - 0.8 K/cumm [facility] Eosinophil abs 0.2 0.0 - 0.5 K/cumm [facility] Basophil abs 0.0 0.0 - 0.1 K/cumm [facility] Neutrophil pct 69.1 % [facility] Comment: Interpretive Data Percent cell count reference ranges are not reported, since discordance with absolute values may lead to misinterpretation of CBC data. Current Interpretive Data was last revised on 2018. Imm gran pct 0.8 % [facility] Comment: Interpretive Data Percent cell count reference ranges are not reported, since discordance with absolute values may lead to misinterpretation of CBC data. Current Interpretive Data was last revised on 2018. Lymphocyte pct 18.8 % [facility] Comment: Interpretive Data Percent cell count reference ranges are not reported, since discordance with absolute values may lead to misinterpretation of CBC data. Current Interpretive Data was last revised on 2018. Monocyte pct 8.8 % [facility] Comment: Interpretive Data Percent cell count reference ranges are not reported, since discordance with absolute values may lead to misinterpretation of CBC data. Current Interpretive Data was last revised on 2018. Eosinophil pct 2.0 % [facility] Comment: Interpretive Data Percent cell count reference ranges are not reported, since discordance with absolute values may lead to misinterpretation of CBC data. Current Interpretive Data was last revised on 2018. Basophil pct 0.5 % [facility] Comment: Interpretive Data Percent cell count reference ranges are not reported, since discordance with absolute values may lead to misinterpretation of CBC data. Current Interpretive Data was last revised on 2018. Blood 09/17/2024 12:2 1 PM SURVEYING CREW STAKE RUNNER 09/17/2024 12:37 PM SURVEYING CREW STAKE RUNNER Yury Titus MD LAB BLOOD ORDERABLES Final R esult [facility] Department [place] [address] * (ABNORMAL) CBC with auto differential (09/17/2024 12:21 PM SURVEYING CREW STAKE RUNNER) WBC 8.7 3.8 - 9.9 K/cumm Hgb 10.8(L) 13.0 - 17.5 g/dL [facility] Hct 32.5(L) 38.9 - 50.3 % [facility] Plt 139(L) 150 - 400 K/cumm [facility] MPV 10.1 9.1 - 12.3 fL [facility] RBC 3.42(L) 4.30 - 5.80 M/cumm [facility] MCV 95.0 81.3 - 96.4 fL [facility] MCH 31.6 27.1 - 33.3 pg [facility] MCHC 33.2 32.3 - 35.7 g/dL [facility] RDW CV 12.7 11.1 - 14.9 % [facility] RDW SD 44.3 35.7 - 48.1 fL [facility] NRBC abs 0.00 0.00 - 0.01 K/cumm [facility] Blood 09/17/2024 12:2 1 PM SURVEYING CRE[employer] STAKE RUNNER 09/17/2024 12:37 PM SURVEYING CREW STAKE RUNNER Yury Titus MD LAB BLOOD ORDERABLES Final R esult [facility] [place] [address] * ENDOVASCULAR REPAIR - AORTIC (09/17/2024 12:00 PM SURVEYING CREW STAKE RUNNER) Anatomical Region Laterality Modality X-Ray Angiograph y Narrative 09/17/2024 12:49 PM SURVEYING CREW STAKE RUNNER Please see OpNote for result. Yury Titus MD SURGICAL CASE ORDERS Final R esult * ENDARTERECTOMY - FEMORAL POPLITEAL OR TIBIOPERONEAL (09/17/2024 12:00 PM SURVEYING CREW STAKE RUNNER) Anatomical Region Laterality Modality X-Ray Angiograph y Narrative 09/17/2024 12:49 PM SURVEYING CREW STAKE RUNNER Please see OpNote for result. us Yury Titus MD CV CARDIAC CATH PROCEDURES F inal Result * POCT Activated clotting time, low range (09/17/2024 11:18 AM SURVEYING CREW STAKE RUNNER) ACT 133 123 - 168 sec POC Performer [id number] [facility] POC Device Number [id number] [facility] Blood 09/17/2024 11:1 8 AM SURVEYING CREW STAKE RUNNER 09/17/2024 11:18 AM SURVEYING CREW STAKE RUNNER Result Jose Maria Titus MD LAB POCT ORDERABLES - DEVICE Final Result Performing Organization Address [facility] Co de Phone Number [facility] [place] [address] * (ABNORMAL) POCT Activated clotting time, low range (09/17/2024 11:02 AM SURVEYING CREW STAKE RUNNER) ACT 253(H) 123 - 168 sec POC Performer [id number] [facility] POC Device Number [id number] [facility] Blood 09/17/2024 11:0 2 AM SURVEYING CREW STAKE RUNNER 09/17/2024 11:02 AM SURVEYING CREW STAKE RUNNER us Yury Titus MD LAB POCT ORDERABLES - DEVICE Final Result Performing Organization Address [facility] Co de Phone Number [facility] [place] [address] * (ABNORMAL) POCT Activated clotting time, low range (09/17/2024 10:39 AM SURVEYING CREW STAKE RUNNER) ACT 244(H) 123 - 168 sec POC Performer [id number] [facility] POC Device Number [id number] [facility] Blood 09/17/2024 10:3 9 AM SURVEYING CREW STAKE RUNNER 09/17/2024 10:39 AM SURVEYING CREW STAKE RUNNER Yury Titus MD LAB POCT ORDERABLES - DEVICE Final Result Performing Organization Address [facility] Co de Phone Number [facility] [place] [address] * (ABNORMAL) POCT Activated clotting time, low range (09/17/2024 10:04 AM SURVEYING CREW STAKE RUNNER) ACT 250(H) 123 - 168 sec POC Performer [id number] [facility] POC Device Number [id number] [facility] Blood 09/17/2024 10:0 4 AM SURVEYING CREW STAKE RUNNER 09/17/2024 10:04 AM SURVEYING CREW STAKE [employer]NER Yury Titus MD LAB POCT ORDERABLES - DEVICE Final Result Performing Organization Address [facility] de Phone Number [facility] [place] [address] * (ABNORMAL) POCT Activated clotting time, low range (09/17/2024 9:33 AM SURVEYING CREW STAKE RUNNER) ACT 207(H) 123 - 168 sec POC Performer [id number] [facility] POC Device Number [id number] [facility] Blood 09/17/2024 9:33 AM SURVEYING CREW STAKE RUNNER 09/17/2024 9:33 AM SURVEYING CREW STAKE RUNNER Yury Titus MD LAB POCT ORDERABLES - DEVICE Final Result Performing Organization Address [facility] Co de Phone Number [facility] [place] [address] * (ABNORMAL) POCT Activated clotting time, low range (09/17/2024 9:01 AM SURVEYING CREW STAKE RUNNER) ACT 279(H) 123 - 168 sec POC Performer [id number] [facility] POC Device Number [id number] [facility] Blood 09/17/2024 9:01 AM SURVEYING CREW STAKE RUNNER 09/17/2024 9:01 AM SURVEYING CREW STAKE RUNNER Yury Titus MD LAB POCT ORDERABLES - DEVICE Final Result [facility] Department [place] [address] * TX AN PROCEDURE PLACEHOLDER (09/17/2024 8:30 AM SURVEYING CREW STAKE RUNNER) Narrative Neema Miller - 09/17/2024 8:30 AM SURVEYING CREW STAKE RUNNER Neema Miller 09/17/2024 8:32 AM Peripheral IV Catheter Patient location: OR Staff: Supervising provider: Bigg Martinez MD Placed by: TRAFFIC ENUMERATOR: Rosanne Gray CRNA Preprocedure prep: Prep solution: chlorhexadine PPE: gloves and provider hat/mask PIV line: Laterality: left Site: wrist Catheter size: 16 g Technique: direct visualization and palpatation Procedure details: good blood return and occlusive dressing applied Number of attempts: 2 Assessment: Events: patient tolerated procedure well with no complications Result [facility] Bigg Martinez MD ANESTHESIA ORDERABLES Final Resu lt * TX AN ELECTIVE ENDOTRACHEAL AIRWAY, TX AN PROCEDURE PLACEHOLDER (09/17/2024 8:28 AM SURVEYING CREW STAKE RUNNER) Narrative Neema Miller - 09/17/2024 8:28 AM SURVEYING CREW STAKE RUNNER Neema Miller 09/17/2024 8:30 AM Airway Patient [...] with: silk tape Number of attempts: 1 Bigg Martinez MD ANESTHESIA ORDERABLES Final Resu lt * (ABNORMAL) POC Blood Gas and Chemistries, Arterial - (09/17/2024 8:28 AM SURVEYING CREW STAKE RUNNER) pH, Art POC 7.38 7.35 - 7.45 pCO2, Art POC 41 35 - 45 mmHg [facility] pO2, Art POC Incalculable 83 - [address] [facility] Na, POC 141 135 - 145 mmol/L [facility] K POC 4.1 3.3 - 4.9 mmol/L [facility] Comment: Interpretive Data Not all point of care methods assess for hemolysis. Confirm with instrument and retest K+ if not consistent with clinical signs and symptoms. Current Interpretive Data was last revised on 2024. Cl, POC 113(H) 97 - 110 mmol/L [facility] Ionized Ca, POC 5.05 4.50 - 5.10 mg/dL [facility] Glucose, POC 119 70 - 199 mg/dL [facility] Lactate, POC 0.9 0.7 - 2.2 mmol/L [facility] SO2 (hannah) arterial 100(H) 90 - 95 % [facility] Base excess, POC -0.8 mmol/L [facility] HCO3, Art POC Incalculable 20 - 30 mmol/L [facility] Hct, POC 35.0(L) 41.4 - 51.6 % [facility] Total Hb, POC 11.6(L) 13.8 - 17.2 g/dL [facility] Blood 09/17/2024 8:28 AM SURVEYING CREW STAKE RUNNER 09/17/2024 8:28 AM SURVEYING CREW STAKE RUNNER us Yury Titus MD LAB POCT ORDERABLES - DEVICE Final Result [facility] Department of Laboratories [place], [place] [phone] * POCT Activated clotting time, low range (09/17/2024 8:07 AM SURVEYING CREW STAKE RUNNER) ACT 129 123 - 168 sec POC Performer [id number] [facility] POC Device Number [id number] [facility] Blood 09/17/2024 8:07 AM SURVEYING CREW STAKE RUNNER 09/17/2024 8:07 AM SURVEYING CREW STAKE RUNNER us Yury Titus MD LAB POCT ORDERABLES - DEVICE Final Result Performing Organization Address City/[facility]/ZIP Co de Phone Number [facility] One [facility] Department [place] [address] * Prepare RBC: 4 Units (09/17/2024 7:54 AM SURVEYING CREW STAKE RUNNER) [facility] Product code [id number] Unit Number [id number] 2-U [facility] Product Blood Type APOS [facility] Dispense Status RETURNED [facility] Product code [id number] [facility] Unit Number [id number] 0-B [facility] Product Blood Type APOS [facility] Dispense Status RETURNED [facility] Product code [id number] [facility] Unit Number [id number] 2-U [facility] Product Blood Type APOS [facility] Dispense Status RETURNED [facility] Product code [id number] [facility] Unit Number [id number] 3-M [facility] Product Blood Type APOS [facility] Dispense Status RETURNED [facility] Blood 09/17/2024 7:54 AM SURVEYING CREW STAKE RUNNER 09/17/2024 7:53 AM SURVEYING CREW STAKE RUNNER Narrative [facility] - 09/18/2024 5:36 AM SURVEYING CREW STAKE RUNNER Are special requirements needed? (All products are leukoreduced and CMV- safe)- >No Date required:-[id number] LRRBC # of [id number] Reasons:-Intra-op transfusion} us Bigg Martinez MD BLOOD BANK PRODUCT ORDERABLES Fi nal Result [facility] Department [place] [address] * (ABNORMAL) POC Blood Gas and Chemistries, Arterial - (09/17/2024 6:22 AM SURVEYING CREW STAKE RUNNER) Na, POC 141 135 - 145 mmol/L K POC 4.2 3.3 - 4.9 mmol/L [facility] Comment: Interpretive Data Not all point of care methods assess for hemolysis. Confirm with instrument and retest K+ if not consistent with clinical signs and symptoms. Current Interpretive Data was last revised on 2024. Glucose, POC 113 70 - 199 mg/dL [facility] Hct, POC 38.0(L) 41.4 - 51.6 % [facility] Total Hb, POC 12.5(L) 13.8 - 17.2 g/dL [facility] Blood 09/17/2024 6:22 AM SURVEYING CREW STAKE RUNNER 09/17/2024 6:22 AM SURVEYING CREW STAKE RUNNER Yury Titus MD LAB POCT ORDERABLES - DEVICE Final Result Performing Organization Address [facility] Co de Phone Number [facility] [place] [address] * Check Sample (09/17/2024 6:20 AM SURVEYING CREW STAKE RUNNER) ABO Rh A Positive [facility] HCLL OTHER 09/17/2024 6:20 AM SURVEYING CREW STAKE RUNNER 09/17/2024 6:30 AM SURVEYING CREW STAKE RUNNER Yury Titus MD LAB BLOOD ORDERABLES Final R esult Performing Organization Address [facility] Co de Phone Number [facility] [place] [address] [facility] from Last 3 Months Insurance [facility] MEDICARE [facility] MEDICARE [facility] Advance Directives For more information, please contact: [phone] Documents on File Type Date Recorded Patient Reed Worker Expl anation ADVANCE DIRECTIVE 09/24/2024 6:02 PM [employer] ADVANCE DIRECTIVE 09/18/2024 2:45 PM [employer] * Full Code (Latest Code Status on File) Date Activated Date Inactivated Comments 09/17/2024 1:07 PM 09/20/2024 7:41 PM * Full Code Date Activated Date Inactivated Comments 04/04/2022 9:28 AM 04/04/2022 7:29 PM * Full Code Date Activated Date Inactivated Comments 08/03/2021 4:19 PM 08/04/2021 12:18 AM Care Teams Chemical Checker Relationship Specialty Start Date End Date Saurabh Contreras MD [address] [address] PCP - General 07/06/21 [place] [address] [address] [facility] [address] [facility] [address] [address] Consulting Physician Vascular Surgery 09/20/24
== END 2024-12-14 09:26 | disposition home or self-care (01) ==
PROVIDERS: PCP Family Medicine; Visit Provider Family Medicine
DX: E53.8 Deficiency of other specified B group vitamins (principal); R73.9 Hyperglycemia, unspecified; E78.5 Hyperlipidemia, unspecified
CPT/HCPCS: 36415; 83036; 84443; 85025

== ENCOUNTER 2025-01-18 07:55 | Outpatient (CLI) | payer MEDICARE, SELFPAY ==
--- OUTSIDE RECORDS SUMMARY | 2025-01-18 08:08 | XMS_ITS | Clinical Summary ---
Author Organization [facility] Address [address] [address] Phone Care Team Providers Care Margin Trimmer Name Role Phone Saurabh Contreras MD Primary Care Provider [phone] Allergies Active Allergy Reactions Criticality Noted Date Comments Vitamin D (Calciferol) Other (see Comments) 07/09/2017 Myalgias & leg cramps with 50,000 u. Medications Ascorbic Acid (VITAMIN C PO) Take by mouth. Active Cholecalcifero l (VITAMIN D3 PO) Take by mouth. Activ e acetaminophen (TYLENOL) 325 MG Tablet Take 1 Tab by mouth every 6 hours as needed for Fever (for temperature greater than 100.4 F.). Do not exceed 4000 mg of acetaminophen in 24 hour from all sources. 0 Active clopidogrel (PLAVIX) 75 MG Tablet Take 75 mg by mouth daily. 2 Active Cyanocobalamin (B-12) 1000 MCG Capsule Take 1,000 mcg by mouth daily. 90 Capsule 3 3 Active atorvastatin (LIPITOR) 80 MG Tablet 4 Active ezetimibe (ZETIA) 10 MG Tablet Take 1 Tablet by mouth daily. 4 Active fluticasone (FLONASE) 50 MCG/ACT Suspension 1-2 Sprays by Nasal route daily. Use in each nostril as directed. 16 g 1 09/19/202 4 Active Active Problems Problem Noted Date Diagnosed [...] Encounters Date Type Department Care Team Description 12/14/2024 Results Follow-Up [facility] [address] [place] [address] Saurabh Contreras MD Anemia, normocytic normochromic (Primary Dx) 12/10/2024 4:15 PM MASKING MACHINE OPERATOR Office Visit [facility] [address] [place] [address] Saurabh Contreras MD Cerumen debris on tympanic membrane of left ear (Primary Dx); Ex-smoker; B12 deficiency; Hyperlipidemia, unspecified hyperlipidemia type; Hyperglycemia Discharge Disposition: Discharged to home or Selfcare 12/10/2024 Travel from Last 3 Months Immunizations Immunization [...] = 0.6 oz pur e alcohol) Occasionally [employer] Answer Date Recorded In the past 12 months has [employer], gas, oil, or water [place] threatened to shut off services in your [...] often do you attend chur ch or alevism services? Never 07/16/2024 Do you belong to any clubs o r organizations such as religion groups, unions, fraternal or athletic groups, or [...] Total Score - Questions 1-9 0 11/28 [facility] - Occupational [...] place to sleep or slept in a half-way (including now)? Patient declined 12/25/2023 Housing Stability [...] any time in the past 12 m [facility], were you homeless or living in a half-way (including now)? No 07/16/2024 Education Answer Date Recorded What is the highest level of school you have completed or the highest degree you have received? 12th grade 06/13/2023 Sexually Active Control Partners Comments Not Currently Female Sex and Gender Information Value Date Recorded Sex Assigned at Not on file Legal Sex Male 12:44 PM MASKING MACHINE OPERATOR Gender Identity Not on file Sexual Orientation Not on file Last Filed Vital Signs Vital Sign Reading Time Taken Comments Blood Pressure 130/72 12/10/2024 3:50 PM MASKING MACHINE OPERATOR Pulse 77 12/10/2024 3:50 PM MASKING MACHINE OPERATOR Temperature 36.8 C (98.3 F) 12/10/2024 3:50 PM MASKING MACHINE OPERATOR Respiratory Rate 18 09/23/2024 12:48 PM MASKING MACHINE OPERATOR Oxygen Saturation 97% 12/10/2024 3:50 PM MASKING MACHINE OPERATOR Inhaled Oxygen Concentration - - Weight 73 kg (161 lb) 12/10/2024 3:50 PM MASKING MACHINE OPERATOR Height 182.9 cm (6') 12/10/2024 3:50 PM MASKING MACHINE OPERATOR Body Mass Index 21.84 12/10/2024 3:50 PM MASKING MACHINE OPERATOR Plan of Treatment Upcoming Encounters Date Type Department Care Team (Late st Contact Info) Description 06/09/2025 1:15 PM CDT Office Visit [facility] - Family [facility] [address] [place] [address] Saurabh Contreras MD [address] [address] Health Maintenance Due Date Last Done Comments [...] this topic Medical Devices Implanted Type Area Composition Floor Layer Device Identifier Shelf Expiration Date Model / Serial / Lot Mesh Srg Bard Marlex 6x3in Groin Mfl Gold Std Flat Sheet Strl Polyp Rectangle Inguinal Hernia Repair - [id number] Implanted:Qty: 1 on 10/06/2020 by Bonifacio Olivas MD at [facility] IMPLANT Left: Groin [employer] 07/25/2024 [id number] / [id number] / [id number] Procedures Procedure Name Priority Date/Time Associated Diagnosis Comments HEMOGLOBIN A1C W/ ESTIMATED GLUCOSE Routine 12/14/2024 12:00 AM MASKING MACHINE OPERATOR Hyperglycemia COMPLETE BLOOD COUNT (CBC) WITH DIFF Routine 12/14/2024 12:00 AM MASKING MACHINE OPERATOR B12 deficiency THYROID STIMULATING HORMONE (TSH) Routine 12/14/2024 12:00 AM MASKING MACHINE OPERATOR Hyperlipidemia, unspecified hyperlipidemia type PSA SCREEN Routine 04/08/2024 2:55 PM CDT [...] Recently Relevant to Health Maintenance Results * HEMOGLOBIN A1C W/ ESTIMATED GLUCOSE (12/14/2024 12:00 AM MASKING MACHINE OPERATOR) HGB-A1C 5.7 SCAN Blood Saurabh Contreras MD CHEMISTRY ORDERABLES Final Result SCAN * THYROID STIMULATING HORMONE (TSH) (12/14/2024 12:00 AM MASKING MACHINE OPERATOR) Blood Saurabh Contreras MD CHEMISTRY ORDERABLES Final Result SCAN * COMPLETE BLOOD COUNT (CBC) WITH DIFF (12/14/2024 12:00 AM MASKING MACHINE OPERATOR) Blood Saurabh Contreras MD HEMATOLOGY ORDERABLES Final Result SCAN * PSA SCREEN (04/08/2024 2:55 PM CDT) PSA SCREEN, TOTAL 0.68 <4.00 ng/mL 04/08/2024 4:34 PM CDT [facility] Blood Venipuncture / Unknown 04/08/2024 2:55 PM CDT 04/08/2024 2:55 PM CDT Narrative [facility] - 04/08/2024 4:34 PM CDT The ALINITY Total PSA assay is a Chemiluminescent Microparticle Immunoassay (CMIA) for the quantitative determination of total PSA (both free PSA and PSA complexed to [id number]) in human serum. Total PSA values obtained with different assay methods, including Santa PSA assays, cannot be used interchangeably. Saurabh Contreras MD CHEMISTRY ORDERABLES Final Result [facility] [address] [place] [address] * US AORTA MERIDA SCALE ONLY (03/13/2021 [...] Sheeba Quintana M.D. TB: RAMIRO Report ID: [id number] Reading [facility] Procedure Note Sheeba Quintana MD - 03/13/2021 [...] Sheeba Quintana M.D. TB: RAMIRO Report ID: [id number] Reading [facility] IMPRESSION: 1. Slight interval increase in size of infrarenal abdominal aortic aneurysm compared to prior ultrasound from March 2020. Maximum dimension on this study is 4.5 cm. On more recent MRI examination from August 2020, a maximum dimension of 4.[address] angiography be utilized for further assessment as warranted clinically. Saurabh Contreras MD IMG US ORDERABLES Final Res ult * HEPATITIS C ANTIBODY (03/18/2017) Blood specimen (specimen) Saurabh Contreras MD CHEMISTRY ORDERABLES Final Result * COLONOSCOPY (04/03/2012) Heath Hardin MD PROCEDURE/MINOR SURGICAL ORDERABLES Final Result from Last 3 Months or Most Recently Relevant to Health Maintenance Insurance MEDICARE [facility] Care Teams Margin Trimmer Relationship Specialty Start Date End Date Saurabh Contreras MD [address] [address] PCP - General Family Medicine 02/18/17
--- OUTSIDE RECORDS SUMMARY | 2025-01-18 08:08 | XMS_ITS | Referral Summary ---
Author Organization [facility] Medical Office Building A Address [address] [place] [address] Care Team Providers Care Motor Vehicles Inspector Name Role Phone Saurabh Contreras MD Primary Care Provider [phone] Yury Titus MD Unavailable [phone] Allergies No known active allergies Medications cyanocobalamin (Vitamin B-12) 500 mcg tablet Take 1 tablet (500 mcg total) by mouth metal cnc operator before breakfast Active ascorbic acid (VITAMIN C) 1,000 mg tablet Take 1 tablet (1,000 mg total) by mouth metal cnc operator before breakfast Active cholecalcifero l (VITAMIN D-3) 25 mcg (1,000 unit) tablet Take 1 tablet (1,000 Units total) by mouth metal cnc operator before breakfast Active aspirin 81 mg chewable [...] 08/17/2024 Assessment & Plan (09/19/2024 11:29 AM SERVICE AIDE): Recent CT angiogram shows 5.5 cm abdominal aortic aneurysm. Presents for hybrid intervention for AAA repair and PVD. - 09/17: OR s/p B/L INSOLE BUFFER cutdown (L INSOLE BUFFER repaired primarliy; R INSOLE BUFFER-SFA patch angioplasty at end of case); EVAR; L external iliac stenting and angioplasty - Normotensive blood pressure goal - OOB POD1 - ADAT - Pain control - PT/OT recs pending Carotid stenosis, bilateral 01/13/2024 Primary hypertension 02/26/2022 Assessment & Plan (09/17/2024 8:44 AM SERVICE AIDE): Not on medications. - monitor BP PVD (peripheral vascular disease) 07/25/2021 Overview (07/25/2021): Added automatically from request for surgery [id number] Assessment & Plan (09/19/2024 11:28 AM SERVICE AIDE): Hx of right external iliac artery stent that extends into the right common femoral artery along with right popliteal artery stent with Dr Smith at [facility] (07/2021). - 09/17: OR s/p B/L INSOLE BUFFER cutdown (L INSOLE BUFFER repaired primarliy; R INSOLE BUFFER-SFA patch angioplasty at end of case); EVAR; L external iliac stenting and angioplasty - continue asa, statin. Plavix on hold. - will resume plavix upon discharge Hyperlipidemia 04/07/2020 Assessment & Plan (09/17/2024 8:22 AM SERVICE AIDE): - continue atorvastatin, ezetimibe Abdominal aortic aneurysm (A AA) 3.0 cm to 5.5 cm in diameter in male 06/09/2017 Splenic lesion 06/09/2017 Pulmonary emphysema 04/21/2017 Vitamin D deficiency 03/31/2017 Tobacco abuse 02/18/2017 Assessment & Plan (09/17/2024 1:51 PM SERVICE AIDE): Has not smoked in 3 mo. - [...] on file Legal Sex Male 6:57 AM SERVICE AIDE Gender Identity Not on file Sexual Orientation Not on file Last Filed Vital Signs Vital Sign Reading Time Taken Comments Blood Pressure 129/84 10/19/2024 10:18 AM SERVICE AIDE Pulse 78 10/19/2024 10:18 AM SERVICE AIDE Temperature 37.6 C (99.6 F) 09/20/2024 11:31 AM SERVICE AIDE Respiratory Rate 18 09/20/2024 11:3 1 AM SERVICE AIDE Oxygen Saturation 99% 10/19/2024 10: 18 AM SERVICE AIDE Inhaled Oxygen Concentration - - Weight 68.4 kg (150 lb 12.7 oz) 024 10:18 AM SERVICE AIDE Height 182.9 cm (6') 10/19/2024 10:18 AM SERVICE AIDE Body Mass Index 20.45 10/19/2024 10:18 AM SERVICE AIDE Plan of Treatment Not on file Medical Devices Implanted Type Area Press Operator Heavy Duty Device Identifier Shelf Expiration Date Model / Serial / Lot Terumo Medical Jarod Stent Graft Aortic Bifurcated Main Body [id number] Treo Polyester Nitinol 70-W2-28-100u - [id number] Implanted:Qty: 1 on 09/17/2024 by Yury Titus MD at [facility] Stent N/A: Aorta Terumo Medical Jarod 03/19/2027 28-B2-28- 100U / / [id number] Terumo Medical Jarod Stent Graft Iliac Leg Extension 13/58d824sq Treo Polyester Nitinol 05-P4-46-120u - [id number] Implanted:Qty: 1 on 09/17/2024 by Yury Titus MD at [facility] Stent Right: Common Iliac Artery Terumo Medical Jarod 05/14/2027 28-L2-13- 120U / / [id number] Terumo Medical Jarod Stent Graft Iliac Leg Extension 13/51j782gx Treo Polyester Nitinol 42-W7-42-120u - [id number] Implanted:Qty: 1 on 09/17/2024 by Yury Titus MD at [facility] Stent Left: Common Iliac Artery Terumo Medical Jarod 04/25/2027 28-L2-13- 120U / / [id number] Medtronic Inc Everflex 8mm 60mm 80cm 3 Wave Peak Self Expand Flexible Spiral Lbd70-19-629-7 80 - [id number] Implanted:Qty: 1 on 09/17/2024 by Yury Titus MD at [facility] Stent Left: External Iliac Artery Medtronic Inc [id number] 08/13/2027 RNT33-09- 060-080 / / [id number] Medtronic Inc Everflex Entrust 8mm 80mm 120cm Self Expand Triaxial Low Profile - [id number] Implanted:Qty: 1 on 08/03/2021 by Triston Smith MD at [facility] Medtronic Inc 12/30/2022 [id number]- 080-120 / / [id number] Daig Jarod/St Messi Medical [id number] Angio-Seal Evolution 6fr .035in Guidewire Bypass Tube Suture - [id number] Implanted:Qty: 1 on 08/03/2021 by Triston Smith MD at [facility] TerNuScriptRx Jarod 03/27/2022 [id number] / / [id number] Cook [employer] Inc [id number] Zilver Ptx 6mm 100mm 125cm Otw Preload Delivery System Self - [id number] Implanted:Qty: 1 on 08/03/2021 by Triston Smith MD at [facility] [employer] Inc 04/27/2023 [id number] / / [id number] Medtronic Inc Everflex Entrust 7mm 40mm 120cm Self Expand Triaxial Low Profile - [id number] Implanted:Qty: 1 on 08/03/2021 by Triston Smith MD at [facility] Medtronic Inc 03/28/2024 CIA22-99- 040-120 / / [id number] [employer] [employer] Jarod Synergy Xd Monorail 3mm 24mm 144cm Delivery System 1 Access Port [id number] - [id number] Implanted:Qty: 1 on 04/04/2022 by Triston Smith MD at [facility] tok tok tok Jarod 11/13/2023 [id number] / / [id number] [place] [employer] Jarod Synergy Xd Monorail 2.75mm 16mm 144cm Delivery System 1 Access [id number] - [id number] Implanted:Qty: 1 on 04/04/2022 by Triston Smith MD at [facility] [employer] Jarod 08/29/2023 [id number] / / [id number] [employer] Stent Drug Eluting S Megatron Us Mr 3.20g58ua [id number] - [id number] Implanted:Qty: 1 on 04/04/2022 by Triston Smith MD at [facility] [employer] Jarod 11/13/2022 [id number] / / [id number] Angio-Seal Evolution 6fr Vascular Closure [id number] - [id number] Implanted:Qty: 1 on 04/04/2022 by Triston Smith MD at [facility] TerStretchr 09/26/2022 [id number] / / [id number] [facility] Jarod Patch Vascuguard 0.88cm [id number] - [id number] - [id number] Implanted:Qty: 1 on 09/17/2024 by Yury Titus MD at [facility] Left: Groin [facility] Jarod [id number] 04/23/2026 [id number] / [id number] / [id number] Procedures Procedure Name Priority Date/Time Associated Diagnosis Comments CTA ABDOMINAL AORTA AND BILATERAL ILIOFEMORAL RUNOFF Schedule Routine, Read Routine (OP Routine) 10/19/2024 10:00 AM SERVICE AIDE Encounter for surgical aftercare following surgery on the circulatory system Infrarenal abdominal aortic aneurysm (AAA) without rupture from Last 3 Months or Most Recently Relevant to Health Maintenance Results * CTA Abdominal Aorta And Bilateral Iliofemoral Runoff (10/19/2024 10:00 AM SERVICE AIDE) Anatomical Region Laterality Modality Body Bilateral Computed Tomogra phy 10/19/2024 11:0 8 AM SERVICE AIDE Impressions 10/19/2024 11:08 AM SERVICE AIDE New aortobiiliac endovascular stent graft. Stable 58 mm infrarenal abdominal aortic aneurysm. Type II endoleak at the inferior mesenteric artery. Atherosclerotic disease in the lower extremity arteries. Electronically signed by: Abel May M.D. Narrative 10/19/2024 11:08 AM SERVICE AIDE EXAMINATION: CTA ABDOMINAL AORTA AND BILATERAL ILIOFEMORAL [...] is noted in the right popliteal artery [id number]-[id number]. Approximately 50% focal in-stent stenosis is noted [...] is noted in the right popliteal artery iprve-lqs-lvog. Approximately 50% focal in-stent stenosis is noted [...] by: Abel May M.D. Yury Titus MD IMG CT PROCEDURES Final Resu lt from Last 3 Months or Most Recently Relevant to Health Maintenance Insurance MEDICARE [facility] MEDICARE [facility] MEDICARE [facility] Member Subscriber Plan / Payer (Ef fective 2021-Present) Name:Cory Umanzor Relation to Subscriber:Self Name:Cory Umanzor Payer ID:[id number] Group ID:[id number] Type:COMMERCIAL Address: [facility] [id number] [place] [id number] Advance Directives For more information, please contact: [phone] Documents on File Type Date Recorded Patient Silverer Expl anation ADVANCE DIRECTIVE 09/24/2024 6:02 PM BRANDO R OF SHIRT HEMMER-MEDICAL ADVANCE DIRECTIVE 09/18/2024 2:45 PM BRANDO R OF SHIRT HEMMER-MEDICAL * Full Code (Latest Code Status on File) Date Activated Date Inactivated Comments 09/17/2024 1:07 PM 09/20/2024 7:41 PM * Full Code Date Activated Date Inactivated Comments 04/04/2022 9:28 AM 04/04/2022 7:29 PM * Full Code Date Activated Date Inactivated Comments 08/03/2021 4:19 PM 08/04/2021 12:18 AM Care Teams Motor Vehicles Inspector Relationship Specialty Start Date End Date Saurabh Contreras MD [address] [address] PCP - General 07/06/21 [place] [id number] [address] [facility] [address], [place] [address] Consulting Physician Vascular Surgery 09/20/24
--- OUTSIDE RECORDS SUMMARY | 2025-01-18 08:08 | XMS_ITS | Clinical Summary ---
Author Organization [facility] Medical Office Building A Address [address] [place] [address] Care Team Providers Care Automobile Sales Consultant Name Role Phone Saurabh Contreras MD Primary Care Provider [phone] Yury Titus MD Unavailable [phone] Allergies No known active allergies Medications cyanocobalamin (Vitamin B-12) 500 mcg tablet Take 1 tablet (500 mcg total) by mouth vmware engineer before breakfast Active ascorbic acid (VITAMIN C) 1,000 mg tablet Take 1 tablet (1,000 mg total) by mouth vmware engineer before breakfast Active cholecalcifero l (VITAMIN D-3) 25 mcg (1,000 unit) tablet Take 1 tablet (1,000 Units total) by mouth vmware engineer before breakfast Active aspirin 81 mg chewable [...] 08/17/2024 Assessment & Plan (09/19/2024 11:29 AM AB INITIO ETL DEVELOPER): Recent CT angiogram shows 5.5 cm abdominal aortic aneurysm. Presents for hybrid intervention for AAA repair and PVD. - 09/17: OR s/p B/L SECTION LEADER AND MACHINE SETTER cutdown (L SECTION LEADER AND MACHINE SETTER repaired primarliy; R SECTION LEADER AND MACHINE SETTER-SFA patch angioplasty at end of case); EVAR; L external iliac stenting and angioplasty - Normotensive blood pressure goal - OOB POD1 - ADAT - Pain control - PT/OT recs pending Carotid stenosis, bilateral 01/13/2024 Primary hypertension 02/26/2022 Assessment & Plan (09/17/2024 8:44 AM AB INITIO ETL DEVELOPER): Not on medications. - monitor BP PVD (peripheral vascular disease) 07/25/2021 Overview (07/25/2021): Added automatically from request for surgery [id number] Assessment & Plan (09/19/2024 11:28 AM AB INITIO ETL DEVELOPER): Hx of right external iliac artery stent that extends into the right common femoral artery along with right popliteal artery stent with Dr Smith at [facility] (07/2021). - 09/17: OR s/p B/L SECTION LEADER AND MACHINE SETTER cutdown (L SECTION LEADER AND MACHINE SETTER repaired primarliy; R SECTION LEADER AND MACHINE SETTER-SFA patch angioplasty at end of case); EVAR; L external iliac stenting and angioplasty - continue asa, statin. Plavix on hold. - will resume plavix upon discharge Hyperlipidemia 04/07/2020 Assessment & Plan (09/17/2024 8:22 AM AB INITIO ETL DEVELOPER): - continue atorvastatin, ezetimibe Abdominal aortic aneurysm (A AA) 3.0 cm to 5.5 cm in diameter in male 06/09/2017 Splenic lesion 06/09/2017 Pulmonary emphysema 04/21/2017 Vitamin D deficiency 03/31/2017 Tobacco abuse 02/18/2017 Assessment & Plan (09/17/2024 1:51 PM AB INITIO ETL DEVELOPER): Has not smoked in 3 mo. - [...] wors e than right Peripheral artery disease Aneurysm Family History Medical History Relation Name Comments [...] on file Legal Sex Male 6:57 AM AB INITIO ETL DEVELOPER Gender Identity Not on file Sexual Orientation Not on file Obstetrics History Last Filed Vital Signs Vital Sign Reading Time Taken Comments Blood Pressure 129/84 10/19/2024 10:18 AM AB INITIO ETL DEVELOPER Pulse 78 10/19/2024 10:18 AM AB INITIO ETL DEVELOPER Temperature 37.6 C (99.6 F) 09/20/2024 11:31 AM AB INITIO ETL DEVELOPER Respiratory Rate 18 09/20/2024 11:3 1 AM AB INITIO ETL DEVELOPER Oxygen Saturation 99% 10/19/2024 10: 18 AM AB INITIO ETL DEVELOPER Inhaled Oxygen Concentration - - Weight 68.4 kg (150 lb 12.7 oz) 024 10:18 AM AB INITIO ETL DEVELOPER Height 182.9 cm (6') 10/19/2024 10:18 AM AB INITIO ETL DEVELOPER Body Mass Index 20.45 10/19/2024 10:18 AM AB INITIO ETL DEVELOPER Plan of Treatment Health Maintenance Due Date Last Done Comments Colon Cancer Screening-Colonoscopy 1950 Depression Screening 1950 Hepatitis C Screening 1950 DTaP/Tdap/Td Vaccine (1 - Tdap) 01/31/1963 Hepatitis B Screening 01/31/1970 Well Visit 65+ 01/31/2017 Lung Cancer Screening 08/31/2021 08/31/2020 Zoster Vaccine (2 of 2) 02/09/2023 12/15/2022 Covid-19 Vaccine (4 - 2023-2 5 season) 2024 10/18/2021, 01/27/2021, 12/30/2020 Fall Risk Assessment 09/20/2025 09/20/2024 Pneumococcal vaccine 65+ Completed 12/08/2019, 01/26 Influenza Vaccine Completed 07/14/2024, , 09/11/2021, Additional history exists Abdominal Aortic Aneurysm (A AA) Screen Completed 10/19/2024, 10/19/2024, 10/19/2024, Additional history exists Medical Devices Implanted Type Area Paraprofessional Education Assistant Device Identifier Shelf Expiration Date Model / Serial / Lot Terumo Medical Jarod Stent Graft Aortic Bifurcated Main Body [id number] Treo Polyester Nitinol 51-S2-61-100u - [id number] Implanted:Qty: 1 on 09/17/2024 by Yury Titus MD at [facility] Stent N/A: Aorta Ter[employer]o Medical Jarod 03/19/2027 28-B2-28- 100U / / [id number] Ter[employer]o [employer] Jarod Stent Graft Iliac Leg Extension 13/09v010ef Treo Polyester Nitinol 51-E2-18-120u - [id number] Implanted:Qty: 1 on 09/17/2024 by Yury Titus MD at [facility] Stent Right: Common Iliac Artery Ter[employer] Jarod 05/14/2027 28-L2-13- 120U / / [id number] Ter[employer]o [employer] Jarod Stent Graft Iliac Leg Extension 13/90q382tu Treo Polyester Nitinol 93-J5-56-120u - [id number] Implanted:Qty: 1 on 09/17/2024 by Yury Titus MD at [facility] Stent Left: Common Iliac Artery Terumo Medical Jarod 04/25/2027 28-L2-13- 120U / / [id number] Medtronic Inc Everflex 8mm 60mm 80cm 3 Wave Peak Self Expand Flexible Spiral Lor04-72-043-3 80 - [id number] Implanted:Qty: 1 on 09/17/2024 by Yury Titus MD at [facility] Stent Left: External Iliac Artery Medtronic Inc [id number] 08/13/2027 FSC55-63- 060-080 / / [id number] Medtronic Inc Everflex Entrust 8mm 80mm 120cm Self Expand Triaxial Low Profile - [id number] Implanted:Qty: 1 on 08/03/2021 by Triston Smith MD at [facility] Medtronic Inc 12/30/2022 TDD20-36- 080-120 / / [id number] Daig Jarod/St Messi Medical [id number] Angio-Seal Evolution 6fr .035in Guidewire Bypass Tube Suture - [id number] Implanted:Qty: 1 on 08/03/2021 by Triston Smith MD at [facility] [employer] Jarod 03/27/2022 [id number] / / [id number] [employer] Inc [id number] Zilver Ptx 6mm 100mm 125cm Otw Preload Delivery System Self - [id number] Implanted:Qty: 1 on 08/03/2021 by Triston Smith MD at [facility] Medical Inc 04/27/2023 [id number] / / [id number] Medtronic Inc Everflex Entrust 7mm 40mm 120cm Self Expand Triaxial Low Profile - [id number] Implanted:Qty: 1 on 08/03/2021 by Triston Smith MD at [facility] Medtronic Inc 03/28/2024 WDY70-28- 040-120 / / [id number] [employer] Jarod Synergy Xd Monorail 3mm 24mm 144cm Delivery System 1 Access Port [id number] - [id number] Implanted:Qty: 1 on 04/04/2022 by Triston Smith MD at [facility] [employer] Jarod 11/13/2023 [id number] / / [id number] [employer] Jarod Synergy Xd Monorail 2.75mm 16mm 144cm Delivery System 1 Access [id number] - [id number] Implanted:Qty: 1 on 04/04/2022 by Triston Smith MD at [facility] [employer] Jarod 08/29/2023 [id number] / / [id number] [employer] Jarod Stent Drug Eluting S Megatron Us Mr 3.89j19pe [id number] - [id number] Implanted:Qty: 1 on 04/04/2022 by Triston Smith MD at [facility] [employer] 11/13/2022 [id number] / / [id number] Angio-Seal Evolution 6fr Vascular Closure [id number] - [id number] Implanted:Qty: 1 on 04/04/2022 by Triston Smith MD at [facility] [employer] 09/26/2022 [id number] / / [id number] Vinted Patch Vascuguard 0.88cm [id number] - [id number] - [id number] Implanted:Qty: 1 on 09/17/2024 by Yury Titus MD at [facility] Left: Groin Vinted [id number] 04/23/2026 NC6677 / [id number] / [id number] Procedures Procedure Name Priority Date/Time Associated Diagnosis Comments CTA ABDOMINAL AORTA AND BILATERAL ILIOFEMORAL RUNOFF Schedule Routine, Read Routine (OP Routine) 10/19/2024 10:00 AM AB INITIO ETL DEVELOPER Encounter for surgical aftercare following surgery on the circulatory system Infrarenal abdominal aortic aneurysm (AAA) without rupture from Last 3 Months or Most Recently Relevant to Health Maintenance Results * CTA Abdominal Aorta And Bilateral Iliofemoral Runoff (10/19/2024 10:00 AM AB INITIO ETL DEVELOPER) Anatomical Region Laterality Modality Body Bilateral Computed Tomogra phy 10/19/2024 11:0 8 AM AB INITIO ETL DEVELOPER Impressions 10/19/2024 11:08 AM AB INITIO ETL DEVELOPER New aortobiiliac endovascular stent graft. Stable 58 mm infrarenal abdominal aortic aneurysm. Type II endoleak at the inferior mesenteric artery. Atherosclerotic disease in the lower extremity arteries. Electronically signed by: Angel Graham 10/19/2024 11:08 AM AB INITIO ETL DEVELOPER EXAMINATION: CTA ABDOMINAL AORTA AND BILATERAL ILIOFEMORAL [...] is noted in the right popliteal artery rasbd-pta-cbbq. Approximately 50% focal in-stent stenosis is noted [...] is noted in the right popliteal artery bcjcd-sro-mtcl. Approximately 50% focal in-stent stenosis is noted [...] by: Abel May M.D. Yury Titus MD IM CT PROCEDURES Final Resu lt from Last 3 Months or Most Recently Relevant to Health Maintenance Insurance MEDICARE [facility] MEDICARE [facility] MEDICARE AARP Advance Directives For more information, please contact: [phone] Documents on File Type Date Recorded Patient Mercantile Reporter Expl anation ADVANCE DIRECTIVE 09/24/2024 6:02 PM BRANDO R OF WAREHOUSE CLERK-MEDICAL ADVANCE DIRECTIVE 09/18/2024 2:45 PM BRANDO R OF WAREHOUSE CLERK-MEDICAL * Full Code (Latest Code Status on File) Date Activated Date Inactivated Comments 09/17/2024 1:07 PM 09/20/2024 7:41 PM * Full Code Date Activated Date Inactivated Comments 04/04/2022 9:28 AM 04/04/2022 7:29 PM * Full Code Date Activated Date Inactivated Comments 08/03/2021 4:19 PM 08/04/2021 12:18 AM Care Teams Automobile Sales Consultant Relationship Specialty Start Date End Date Saurabh Contreras MD 2 [facility] [address] [place] [address] PCP - General 07/06/21 [place] [address] [place] [address] Consulting Physician Vascular Surgery 09/20/24
[2025-01-18 08:30] LABS: Basophils Absolute Auto 0.04 K/mm3 (0.00-0.10); Basophils Percent Auto 0.6 % (0.0-1.0); Eosinophils Absolute Auto 0.12 K/mm3 (0.02-0.50); Eosinophils Percent Auto 1.7 % (1.0-6.0); Hematocrit 36.9 % (37.0-46.0); Immature Granulocyte Absolute 0.03 K/mm3 (0.00-0.00); Immature Granulocyte Percent A 0.4 % (0.0-0.0); Lymphocytes Absolute Auto 1.18 K/mm3 (1.10-4.50); Lymphocytes Percent Auto 16.5 % (18.0-42.0); Mean Corpuscular HGB Conc 32.5 g/dL (32-36); Mean Corpuscular Hemoglobin 30.5 pg (27.0-31.0); Mean Corpuscular Volume 93.9 fL (78.0-102.0); Mean Platelet Volume 9.5 fl (8.7-11.0); Monocytes Absolute Auto 0.98 K/mm3 (0.10-0.90); Monocytes Percent Auto 13.7 % (2.0-11.0); Neutrophils Absolute Auto 4.78 K/mm3 (1.70-7.20); Neutrophils Percent Auto 67.1 % (50.0-70.0); Platelet Count Result 184 K/mm3 (150-420); Red Blood Count 3.93 M/mm3 (4.70-6.10); Red Cell Distribution Width 12.4 % (11.6-14.4); White Blood Count 7.1 K/mm3 (4.8-10.8)
[2025-01-18 09:11] LABS: Ferritin 51 ng/mL (26-388); Iron 52 ug/dL (65-175); Percent Iron Saturation 19 % (12-57)
[2025-01-20 04:48] LABS: Transferrin 217 mg/dL (188-341)
== END 2025-01-18 07:56 | disposition home or self-care (01) ==
LOC: CHSLAB 07:59
PROVIDERS: PCP Family Medicine; Visit Provider Family Medicine
DX: D64.9 Anemia, unspecified (principal)
CPT/HCPCS: 36415; 82728; 83540; 83550; 84466; 85025

== ENCOUNTER 2025-05-17 07:52 | Outpatient (CLI) | payer MEDICARE, SELFPAY ==
--- OUTSIDE RECORDS SUMMARY | 2025-05-17 07:57 | XMS_ITS | Clinical Summary ---
Author Organization [facility] Address [address] [address] Phone Care Team Providers Care Account Resolution Expert Name Role Phone Saurabh Contreras MD Primary Care Provider [phone] Allergies No known active allergies Medications Ascorbic Acid (VITAMIN C PO) Take [...] each nostril as directed. 16 g 1 4 Active Active Problems Problem Noted Date Diagnosed Date Anemia, normocytic normochromic 02/09/2025 Ex-smoker 12/10/2024 Cerumen debris on tympanic membrane [...] Encounters Date Type Department Care Team Description 05/07/2025 [facility] [address] [place] [address] Sulema Mejia CNA 02/23/2025 9:20 AM CDT Office Visit [facility] [address] [place] [address] Anne Marie Conde March, Anemia, normocytic normochromic (Primary Dx); B12 deficiency Discharge Disposition: Discharged to home or Selfcare 02/23/2025 Travel from Last 3 Months Immunizations Immunization [...] 1 10/2023 - 1962 Smokeless Tobacco: Never Alcohol Use Standard Drinks/Week Comments Yes 3 (1 standard drink = 0.6 oz pur e alcohol) Occasionally [employer] Utilities Answer Date Recorded In the past 12 months has [place], gas, oil, or water [employer] threatened to shut off services in your home? No 07/16/2024 Social Connection and Isolation Panel Answer Date Recorded In a typical week, how many times do you talk on the phone with family, friends, or neighbors? More than three times a week 07/16/2024 How often do you get togethe r with friends or relatives? More than three times a week 07/16/2024 How often do you attend chur ch or confucianist services? Never 07/16/2024 Do you belong to any clubs o r organizations such as mandaeism groups, unions, fraternal or athletic groups, or [...] Total Score - Questions 1-9 0 11/28 [facility] of Occupat ional [facility] - Occupational Stress Questionnaire Answer Date Recorded [...] place to sleep or slept in a assisted (including now)? Patient declined 12/25/2023 Housing Stability [...] any time in the past 12 m [facility], were you homeless or living in a assisted (including now)? No 07/16/2024 Education Answer Date Recorded What is the highest level of school you have completed or the highest degree you have received? 12th grade 06/13/2023 Sexually Active Control Partners Comments Not Currently Female Sex and Gender Information Value Date Recorded Sex Assigned at Not on file Legal Sex Male 12:44 PM BODY SANDER Gender Identity Not on file Sexual Orientation Not on file Last Filed Vital Signs Vital Sign Reading Time Taken Comments Blood Pressure 165/94 02/23/2025 9:52 AM CDT Pulse 60 02/23/2025 9:52 AM CDT Temperature 36.8 C (98.2 F) 02/23/2025 9:52 AM CDT Respiratory Rate 20 02/23/2025 9:52 AM CDT Oxygen Saturation 98% 02/23/2025 9:52 AM CDT Inhaled Oxygen Concentration - - Weight 73.6 kg (162 lb 3.2 oz) 02/23/2025 9:52 A M CDT Height 182.9 cm (6') 02/23/2025 9:52 AM CDT Body Mass Index 22 02/23/2025 9:52 AM CDT Plan of Treatment Upcoming Encounters Date Type Department Care Team (Late st Contact Info) Description 05/25/2025 8:00 AM CDT [facility] [address] [place] [address] Anne Marie Conde Tracy, PAC [address] [place] [address] Discharge Disposition: Discharged to home or Selfcare 06/09/2025 1:15 PM CDT [facility] [address] [place] [address] Saurabh Contreras MD [address] [address] Health Maintenance Due Date Last Done Comments TdaP Immunization 1950 Cologuard 01/31/1997 Immunochemical Fecal Occult Blood 01/31/1997 Zoster Immunization (2 of 2) 02/09/2023 12/15/2022 SARS-COV-2 Immunization ( season) 2025 07/14/2024, 11/13/2023, 12/15/2022, Additional history exists Colonoscopy 06/01/2025 06/01/2020, 04/03/2012 Colorectal Cancer Screening 06/01/2025 Influenza Immunization (#1) 06/28/202506/28, 09/11/2023, 09/11/2023, Additional history exists Hepatitis C Virus (HCV) Screening Completed 03/18/2017 Pneumococcal Immunization (50+ years) Completed 12/08/2019, 02/05/2018 Pneumococcal Immunization Combined Discontinued 12/08/2019, 02/05/2018 AAA Screening Ultrasound Completed 021, 04/26/2020, 08/05/2019, Additional history exists Respiratory Syncytial Virus (RSV) Immunization (Adult) Completed 11/13/2023 PSA Discussion Discontinued 04/08/2024, 02/25, 06/24/2021, Additional history exists Hepatitis B Immunization Aged Out No longer eligible based on patient's age to complete this topic Human Papillomavirus (HPV) Immunization Aged Out No longer eligible based on patient's age to complete this topic Meningococcal Immunization (ACWY) Aged Out No longer eligible based on patient's age to complete this topic Rotavirus Immunization Aged Out No lo nger eligible based on patient's age to complete this topic Medical Devices Implanted Type Area Talent Acquisition Administrator Device Identifier Shelf Expiration Date Model / Serial / Lot Mesh Srg Bard Marlex 6x3in Groin Mfl Gold Std Flat Sheet Strl Polyp Rectangle Inguinal Hernia Repair - [id number] Implanted:Qty: 1 on 10/06/2020 by Bonif[facility] IMPLANT Left: Groin [employer] 07/25/2024 [id number] / [id number] Procedures Procedure Name Priority Date/Time Associated Diagnosis [...] 0.68 <4.00 ng/mL 04/08/2024 4:34 PM CDT [facility] Blood Venipuncture / Unknown 04/08/2024 2:55 PM CDT 04/08/2024 2:55 PM CDT Narrative [facility] - 04/08/2024 4:34 PM CDT The AGILE customer insightNITY Total PSA assay is a Chemiluminescent Microparticle Immunoassay (CMIA) for the quantitative determination of total PSA (both free PSA and PSA complexed to [id number]) in human serum. Total PSA values obtained with different assay methods, including Santa PSA assays, cannot be used interchangeably. Saurabh Contreras MD CHEMISTRY ORDERABLES Beth tony Result [facility] [address] [place] [address] * US AORTA MERIDA SCALE ONLY (03/13/2021 [...] Sheeba Quintana M.D. TB: RAMIRO Report ID: [id number] Reading Location: [id number] Procedure Note Sheeba Quintana MD - 03/13/2021 [...] Electronically signed by Sheeba Quintana M.D. TB: TB Report ID: [id number] Reading Location: [facility] IMPRESSION: 1. Slight interval increase in size of infrarenal abdominal aortic aneurysm compared to prior ultrasound from March 2020. Maximum dimension on this study is 4.5 cm. On more recent MRI examination from August 2020, a maximum dimension of 4.[address] angiography be utilized for further assessment as warranted clinically. Saurabh Contreras MD [facility] US ORDERABLES Final R esult * HEPATITIS C ANTIBODY (03/18/2017) Blood specimen (specimen) Saurabh Contreras MD CHEMISTRY ORDERABLES Beth l Result * [facility] COLONOSCOPY (04/03/2012) Heath Hardin MD PROCEDURE/MINOR SURGICAL ORDERABLES Final Result from Last 3 Months or Most Recently Relevant to Health Maintenance Insurance MEDICARE [employer] Care Teams Account Resolution Expert Relationship Specialty Start Date End Date Saurabh Contreras MD [address] [address] PCP - General Family Medicine 02/18/17
--- OUTSIDE RECORDS SUMMARY | 2025-05-17 07:57 | XMS_ITS ---
Author Organization [facility] Address [address] [address] Phone Care Team Providers Care Crabber Name Role Phone Saurabh Contreras MD Primary Care Provider [phone] OnCall Chronic Care Management Status:Identified (Enrolling) Start date:05/05/2025 Enrollment reason:Identified using claims or encounter data Related social drivers of health:Intimate Partner Violence, Social Connections, Alcohol Use, Tobacco Use, Financial Resource Strain,Depression, Stress, Physical Activity, Food Insecurity, Transportation Needs, Housing Stability, Utilities Continued Care and Services Coordination
--- OUTSIDE RECORDS SUMMARY | 2025-05-17 07:57 | XMS_ITS | Referral Summary ---
Author Organization [facility] Address [address] [place] [address] Care Team Providers Care Dermatology Technician Name Role Phone Saurabh Contreras MD Primary Care Provider [phone] Yury Titus MD Unavailable [phone] Allergies No known active allergies Medications cyanocobalamin (Vitamin B-12) 500 mcg tablet Take 1 tablet (500 mcg total) by mouth oncology rn before breakfast Active ascorbic acid (VITAMIN C) 1,000 mg tablet Take 1 tablet (1,000 mg total) by mouth oncology rn before breakfast Active cholecalciferol (VITAMIN D-3) 25 mcg (1,000 unit) tablet Take 1 tablet (1,000 Units total) by mouth oncology rn before breakfast Active aspirin 81 mg chewable tablet Take 1 tablet (81 mg total) by mouth daily 30 tablet 1 Active Additional Information Patient taking differently:81 mg oralDaily (early AM), Indications: prevention of thrombosis, Informant: Self, Reported on 09/17/2024 acetaminophen (TYLENOL) 500 mg tabletIndicatio ns:Pain Take 1 tablet (500 mg total) by mouth every 6 (six) hours as needed for pain Active atorvastatin (LIPITOR) 80 mg tablet Take 1 tablet (80 mg total) by mouth nightly 30 tablet 4 Active clopidogreL (PLAVIX) 75 mg tablet Take 1 tablet (75 mg total) by mouth daily 30 tablet 4 Active ezetimibe (ZETIA) 10 mg tablet Take 1 tablet (10 mg total) by mouth daily 30 tablet 11 4 07/20/20 25 Active fluticasone propionate (FLONASE) 50 mcg/actuation nasal spray Administer 1 spray into each nostril daily as needed for rhinitis or allergies Active oxyCODONE (ROXICODONE) 5 mg immediate release tabletIndicatio ns:Pain Take 1 tablet (5 mg total) by mouth every 4 (four) hours as needed for pain 10 tablet 4 Active Additional Information Patient not taking.Reported on 01/25/2025 Active Problems Problem Noted Date Diagnosed Date Aortic aneurysm without rupture 09/18/2024 AAA (abdominal aortic aneurysm) without rupture 09/17/2024 Infrarenal abdominal aortic aneurysm (AAA) witho ut rupture 08/17/2024 Assessment & Plan (09/19/2024 11:29 AM REFUELING RAMP SUPERVISOR): Recent CT angiogram shows 5.5 cm abdominal aortic aneurysm. Presents for hybrid intervention for AAA repair and PVD. - 09/17: OR s/p B/L TEAR DOWN WORKER cutdown (L TEAR DOWN WORKER repaired primarliy; R TEAR DOWN WORKER-SFA patch angioplasty at end of case); EVAR; L external iliac stenting and angioplasty - Normotensive blood pressure goal - OOB POD1 - ADAT - Pain control - PT/OT recs pending Carotid stenosis, bilateral 01/13/2024 Primary hypertension 02/26/2022 Assessment & Plan (09/17/2024 8:44 AM REFUELING RAMP SUPERVISOR): Not on medications. - monitor BP PVD (peripheral vascular disease) 07/25/2021 Overview (07/25/2021): Added automatically from request for surgery [id number] Assessment & Plan (09/19/2024 11:28 AM REFUELING RAMP SUPERVISOR): Hx of right external iliac artery stent that extends into the right common femoral artery along with right popliteal artery stent with Dr Smith at [facility] (07/2021). - 09/17: OR s/p B/L TEAR DOWN WORKER cutdown (L TEAR DOWN WORKER repaired primarliy; R TEAR DOWN WORKER-SFA patch angioplasty at end of case); EVAR; L external iliac stenting and angioplasty - continue asa, statin. Plavix on hold. - will resume plavix upon discharge Hyperlipidemia 04/07/2020 Assessment & Plan (09/17/2024 8:22 AM REFUELING RAMP SUPERVISOR): - continue atorvastatin, ezetimibe Abdominal aortic aneurysm (A AA) 3.0 cm to 5.5 cm in diameter in male 06/09/2017 Splenic lesion 06/09/2017 Pulmonary emphysema 04/21/2017 Vitamin D deficiency 03/31/2017 Tobacco abuse 02/18/2017 Assessment & Plan (09/17/2024 1:51 PM REFUELING RAMP SUPERVISOR): Has not smoked in 3 mo. - [...] - 07/2024 Smokeless Tobacco: Former Chew Quit: 1994 Tobacco Cessation:Counseling Given: Not Answered Comments:counselled to [...] on file Legal Sex Male 6:57 AM REFUELING RAMP SUPERVISOR Gender Identity Not on file Sexual Orientation Not on file Last Filed Vital Signs Vital Sign Reading Time Taken Comments Blood Pressure 182/91 01/25/2025 9:15 AM CDT Pulse 62 01/25/2025 9:15 AM CDT Temperature 36.6 C (97.9 F) 01/25/2025 9:15 AM CDT Respiratory Rate 16 01/25/2025 9:15 AM CDT Oxygen Saturation 99% 01/25/2025 9:15 AM CDT Inhaled Oxygen Concentration - - Weight 72.8 kg (160 lb 9.6 oz) 01/25/2025 9:15 A M CDT Height 182.9 cm (6') 01/25/2025 9:15 AM CDT Body Mass Index 21.78 01/25/2025 9:15 AM CDT Plan of Treatment Not on file Medical Devices Implanted Type Area Lawyer Criminal Device Identifier Shelf Expiration Date Model / Serial / Lot Terumo Medical Jarod Stent Graft Aortic Bifurcated Main Body [id number] Treo Polyester Nitinol 35-M8-23-100u - [id number] Implanted:Qty: 1 on 09/17/2024 by Yury Titus MD at [facility] Stent N/A: Aorta Terumo Medical Jarod 03/19/2027 28-B2-28- 100U / / [id number] Terumo Medical Jarod Stent Graft Iliac Leg Extension 13/60l017ve Treo Polyester Nitinol 73-C7-01-120u - [id number] Implanted:Qty: 1 on 09/17/2024 by Yury Titus MD at [facility] Stent Right: Common Iliac Artery Terumo Medical Jarod 05/14/2027 28-L2-13- 120U / / [id number] Terumo Medical Jarod Stent Graft Iliac Leg Extension 13/59a172ux Treo Polyester Nitinol 69-H5-43-120u - [id number] Implanted:Qty: 1 on 09/17/2024 by Yury Titus MD at [facility] Stent Left: Common Iliac Artery Terumo Medical Jarod 04/25/2027 28-L2-13- 120U / / [id number] Medtronic Inc Everflex 8mm 60mm 80cm 3 Wave Peak Self Expand Flexible Spiral [id number] - [id number] Implanted:Qty: 1 on 09/17/2024 by Yury Titus MD at [facility] Stent Left: External Iliac Artery Medtronic Inc [id number] 08/13/2027 LJE74-23- 060-080 / / [id number] Medtronic Inc Everflex Entrust 8mm 80mm 120cm Self Expand Triaxial Low Profile - [id number] Implanted:Qty: 1 on 08/03/2021 by Triston Smith MD at [facility] Medtronic Inc 12/30/2022 WLA65-72- 080-120 / / [id number] Daig Jarod/St Messi Medical [id number] Angio-Seal Evolution 6fr .035in Guidewire Bypass Tube Suture - [id number] Implanted:Qty: 1 on 08/03/2021 by Triston Smith MD at [facility] Tero Medical Jarod 03/27/2022 [id number] / / [id number] Cook Medical Inc [id number] Zilver Ptx 6mm 100mm 125cm Otw Preload Delivery System Self - [id number] Implanted:Qty: 1 on 08/03/2021 by Triston Smith MD at [facility] [employer] Medical Inc 04/27/2023 [id number] / / [id number] Medtronic Inc Everflex Entrust 7mm 40mm 120cm Self Expand Triaxial Low Profile - [id number] Implanted:Qty: 1 on 08/03/2021 by Triston Smith MD at [facility] Medtronic Inc 03/28/2024 [id number]- 040-120 / / [id number] Compute Jarod Synergy Xd Monorail 3mm 24mm 144cm Delivery System 1 Access Port [id number] - [id number] Implanted:Qty: 1 on 04/04/2022 by Triston Smith MD at [facility] Vaunte 11/13/2023 [id number] / / [id number] Vaunte Synergy Xd Monorail 2.75mm 16mm 144cm Delivery System 1 Access [id number] - [id number] Implanted:Qty: 1 on 04/04/2022 by Triston Smith MD at [facility] Compute Jarod 08/29/2023 [id number] / / [id number] Vaunte Stent Drug Eluting S Megatron Us Mr 3.50y59xb [id number] - [id number] Implanted:Qty: 1 on 04/04/2022 by Triston Smith MD at [facility] Compute [employer] 11/13/2022 [id number] / / [id number] Angio-Seal Evolution 6fr Vascular Closure [id number] - [id number] Implanted:Qty: 1 on 04/04/2022 by Triston Smith MD at [facility] flikdate 09/26/2022 [id number] / / [id number] Stevens Quvium Patch Vascuguard 0.88cm [id number] - [id number] - [id number] Implanted:Qty: 1 on 09/17/2024 by Yury Titus MD at [facility] Left: Groin Stevens Quvium [id number] 04/23/2026 [id number] / [id number] / [id number] Procedures Procedure Name Priority Date/Time Associated Diagnosis Comments CTA ABDOMINAL AORTA AND BILATERAL ILIOFEMORAL RUNOFF Schedule Routine, Read Routine (OP Routine) 10/19/2024 10:00 AM REFUELING RAMP SUPERVISOR Encounter for surgical aftercare following surgery on the circulatory system Infrarenal abdominal aortic aneurysm (AAA) without rupture from Last 3 Months or Most Recently Relevant to Health Maintenance Results * CTA Abdominal Aorta And Bilateral Iliofemoral Runoff (10/19/2024 10:00 AM REFUELING RAMP SUPERVISOR) Anatomical Region Laterality Modality Body Bilateral Computed Tomogra phy 10/19/2024 11:0 8 AM REFUELING RAMP SUPERVISOR Impressions 10/19/2024 11:08 AM REFUELING RAMP SUPERVISOR New aortobiiliac endovascular stent graft. Stable 58 mm infrarenal abdominal aortic aneurysm. Type II endoleak at the inferior mesenteric artery. Atherosclerotic disease in the lower extremity arteries. Electronically signed by: Abel May M.D. Narrative 10/19/2024 11:08 AM REFUELING RAMP SUPERVISOR EXAMINATION: CTA ABDOMINAL AORTA AND BILATERAL ILIOFEMORAL [...] is noted in the right popliteal artery [id number]. Approximately 50% focal in-stent stenosis is noted [...] is noted in the right popliteal artery [id number]. Approximately 50% focal in-stent stenosis is noted [...] MD IMEsme CT PROCEDURES Final Resu lt from Last 3 Months or Most Recently Relevant to Health Maintenance Insurance [facility] MEDICARE [facility] MEDICARE [facility] Advance Directives For more information, please contact: [phone] Documents on File Type Date Recorded Patient Cyber Defense Incident Responder Expl anation ADVANCE DIRECTIVE 09/24/2024 6:02 PM BRANDO R OF ACTIVITY SPECIALIST-MEDICAL ADVANCE DIRECTIVE 09/18/2024 2:45 PM BRANDO R OF ACTIVITY SPECIALIST-MEDICAL * Full Code (Latest Code Status on File) Date Activated Date Inactivated Comments 09/17/2024 1:07 PM 09/20/2024 7:41 PM * Full Code Date Activated Date Inactivated Comments 04/04/2022 9:28 AM 04/04/2022 7:29 PM * Full Code Date Activated Date Inactivated Comments 08/03/2021 4:19 PM 08/04/2021 12:18 AM Care Teams Dermatology Technician Relationship Specialty Start Date End Date Saurabh Contreras MD [address] [place] [id number] PCP - General 07/06/21 [place] [id number] [address] Consulting Physician Vascular Surgery 09/20/24
--- OUTSIDE RECORDS SUMMARY | 2025-05-17 07:57 | XMS_ITS | Clinical Summary ---
Author Organization [facility] Medical Office Building [address] Address [address] [place] [address] Care Team Providers Care Heater Planer Operator Name Role Phone Saurabh Contreras MD Primary Care Provider [phone] Yury Titus MD Unavailable [phone] Allergies No known active allergies Medications cyanocobalamin (Vitamin B-12) 500 mcg tablet Take 1 tablet (500 mcg total) by mouth director of career resources before breakfast Active ascorbic acid (VITAMIN C) 1,000 mg tablet Take 1 tablet (1,000 mg total) by mouth director of career resources before breakfast Active cholecalciferol (VITAMIN D-3) 25 mcg (1,000 unit) tablet Take 1 tablet (1,000 Units total) by mouth director of career resources before breakfast Active aspirin 81 mg chewable [...] 08/17/2024 Assessment & Plan (09/19/2024 11:29 AM PEDIATRICIAN/MEDICAL DOCTOR): Recent CT angiogram shows 5.5 cm abdominal aortic aneurysm. Presents for hybrid intervention for AAA repair and PVD. - 09/17: OR s/p B/L UNION CARPENTER cutdown (L UNION CARPENTER repaired primarliy; R UNION CARPENTER-SFA patch angioplasty at end of case); EVAR; L external iliac stenting and angioplasty - Normotensive blood pressure goal - OOB POD1 - ADAT - Pain control - PT/OT recs pending Carotid stenosis, bilateral 01/13/2024 Primary hypertension 02/26/2022 Assessment & Plan (09/17/2024 8:44 AM PEDIATRICIAN/MEDICAL DOCTOR): Not on medications. - monitor BP PVD (peripheral vascular disease) 07/25/2021 Overview (07/25/2021): Added automatically from request for surgery [id number] Assessment & Plan (09/19/2024 11:28 AM PEDIATRICIAN/MEDICAL DOCTOR): Hx of right external iliac artery stent that extends into the right common femoral artery along with right popliteal artery stent with Dr Smith at [facility] (07/2021). - 09/17: OR s/p B/L UNION CARPENTER cutdown (L UNION CARPENTER repaired primarliy; R UNION CARPENTER-SFA patch angioplasty at end of case); EVAR; L external iliac stenting and angioplasty - continue asa, statin. Plavix on hold. - will resume plavix upon discharge Hyperlipidemia 04/07/2020 Assessment & Plan (09/17/2024 8:22 AM PEDIATRICIAN/MEDICAL DOCTOR): - continue atorvastatin, ezetimibe Abdominal aortic aneurysm (A AA) 3.0 cm to 5.5 cm in diameter in male 06/09/2017 Splenic lesion 06/09/2017 Pulmonary emphysema 04/21/2017 Vitamin D deficiency 03/31/2017 Tobacco abuse 02/18/2017 Assessment & Plan (09/17/2024 1:51 PM PEDIATRICIAN/MEDICAL DOCTOR): Has not smoked in 3 mo. - [...] on file Legal Sex Male 6:57 AM PEDIATRICIAN/MEDICAL DOCTOR Gender Identity Not on file Sexual Orientation [...] 01/25/2025 9:15 AM CDT Plan of Treatment Health Maintenance Due Date Last Done Comments Colon Cancer Screening-Colonoscopy 1950 Depression Screening 1950 Hepatitis C Screening 1950 DTaP/Tdap/Td Vaccine (1 - Tdap) 01/31/1963 Hepatitis B Screening 01/31/1970 Well Visit 65+ 01/31/2017 Lung Cancer Screening 08/31/2021 08/31/2020 Zoster Vaccine (2 of 2) 02/09/2023 12/15/2022 Covid-19 Vaccine (4 - 2023-2 5 season) 2024 10/18/2021, 01/27/2021, 12/30/2020 Influenza Vaccine (#1) 2025 , 09/10/2022, 09/11/2021, Additional history exists Fall Risk Assessment 09/20/2025 09/20/2024 Pneumococcal vaccine 65+ Completed 12/08/2019, 01/26 Abdominal Aortic Aneurysm (A AA) Screen Completed 01/25/2025, 01/25/2025, 01/22/2025, Additional history exists Medical Devices Implanted Type Area Forest Scientist Device Identifier Shelf Expiration Date Model / Serial / Lot Ter[employer] Jarod Stent Graft Aortic Bifurcated Main Body [id number] Treo Polyester Nitinol 82-Y9-89-100u - [id number] Implanted:Qty: 1 on 09/17/2024 by Yury Titus MD at [facility] Stent N/A: Aorta [employer] Jarod 03/19/2027 28-B2-28- 100U / / [id number] [employer] Jarod Stent Graft Iliac Leg Extension 13/45z833mw Treo Polyester Nitinol 06-V6-01-120u - [id number] Implanted:Qty: 1 on 09/17/2024 by Yury Titus MD at [facility] Stent Right: Common Iliac Artery [employer] Jarod 05/14/2027 28-L2-13- 120U / / [id number] [employer] Jarod Stent Graft Iliac Leg Extension 13/77z577ol Treo Polyester Nitinol 76-Z0-73-120u - [id number] Implanted:Qty: 1 on 09/17/2024 by Yury Titus MD at [facility] Stent Left: Common Iliac Artery [employer] Jarod 04/25/2027 28-L2-13- 120U / / [id number] Medtronic Inc Everflex 8mm 60mm 80cm 3 Wave Peak Self Expand Flexible Spiral [id number] 80 - [id number] Implanted:Qty: 1 on 09/17/2024 by Yury Titus MD at [facility] Stent Left: External Iliac Artery Medtronic Inc [id number] 08/13/2027 LXA96-32- 060-080 / / [id number] Medtronic Inc Everflex Entrust 8mm 80mm 120cm Self Expand Triaxial Low Profile - [id number] Implanted:Qty: 1 on 08/03/2021 by Triston Smith MD at [facility] [employer] Inc 12/30/2022 PEY15-84- 080-120 / / [id number] Daig Jarod/St Messi [employer] [id number] Angio-Seal Evolution 6fr .035in Guidewire Bypass Tube Suture - [id number] Implanted:Qty: 1 on 08/03/2021 by Triston Smith MD at [facility] [employer] Jarod 03/27/2022 [id number] / / [id number] Cook [employer] Inc [id number] Zilver Ptx 6mm 100mm 125cm Otw Preload Delivery System Self - [id number] Implanted:Qty: 1 on 08/03/2021 by Triston Smith MD at [facility] [employer] Inc 04/27/2023 [id number] / / [id number] Medtronic Inc Everflex Entrust 7mm 40mm 120cm Self Expand Triaxial Low Profile - [id number] Implanted:Qty: 1 on 08/03/2021 by Triston Smith MD at [facility] [employer]onic Inc 03/28/2024 PGV77-73- 040-120 / / [id number] Ge[employer] Jarod Synergy Xd Monorail 3mm 24mm 144cm Delivery System 1 Access Port [id number] - [id number] Implanted:Qty: 1 on 04/04/2022 by Triston Smith MD at [facility] [email or web address] [facility] 11/13/2023 [id number] / / [id number] [employer] Jarod Synergy Xd Monorail 2.75mm 16mm 144cm Delivery System 1 Access [id number] - [id number] Implanted:Qty: 1 on 04/04/2022 by Triston Smith MD at [facility] [employer] [facility] 08/29/2023 [id number] / / [id number] [employer] Jarod Stent Drug Eluting S Megatron Us Mr 3.52m40jl [id number] - [id number] Implanted:Qty: 1 on 04/04/2022 by Triston Smith MD at [facility] [email or web address] [facility] 11/13/2022 [id number] / / [id number] Angio-Seal Evolution 6fr Vascular Closure [id number] - [id number] Implanted:Qty: 1 on 04/04/2022 by Triston Smith MD at [facility] 09/26/2022 [id number] / / [id number] Angelantoni Patch Vascuguard 0.88cm Yd3277 - [id number] - [id number] Implanted:Qty: 1 on 09/17/2024 by Yury Titus MD at [facility] Left: Groin [employer] [id number] 04/23/2026 [id number] / [id number] / [id number] Procedures Procedure Name Priority Date/Time Associated Diagnosis Comments CTA ABDOMINAL AORTA AND BILATERAL ILIOFEMORAL RUNOFF Schedule Routine, Read Routine (OP Routine) 10/19/2024 10:00 AM PEDIATRICIAN/MEDICAL DOCTOR Encounter for surgical aftercare following surgery on the circulatory system Infrarenal abdominal aortic aneurysm (AAA) without rupture from Last 3 Months or Most Recently Relevant to Health Maintenance Results * CTA Abdominal Aorta And Bilateral Iliofemoral Runoff (10/19/2024 10:00 AM PEDIATRICIAN/MEDICAL DOCTOR) Anatomical Region Laterality Modality Body Bilateral Computed Tomogra phy 10/19/2024 11:0 8 AM PEDIATRICIAN/MEDICAL DOCTOR Impressions 10/19/2024 11:08 AM PEDIATRICIAN/MEDICAL DOCTOR New aortobiiliac endovascular stent graft. Stable 58 mm infrarenal abdominal aortic aneurysm. Type II endoleak at the inferior mesenteric artery. Atherosclerotic disease in the lower extremity arteries. Electronically signed by: Angel Graham 10/19/2024 11:08 AM PEDIATRICIAN/MEDICAL DOCTOR EXAMINATION: CTA ABDOMINAL AORTA AND BILATERAL ILIOFEMORAL [...] is noted in the right popliteal artery [id number]. Approximately 50% focal in-stent stenosis is noted [...] is noted in the right popliteal artery [id number]. Approximately 50% focal in-stent stenosis is noted [...] by: Abel May M.D. Yury Titus MD [facility] CT PROCEDURES Final Resu lt from Last 3 Months or Most Recently Relevant to Health Maintenance Insurance [facility]ICARE [facility] MEDICARE AARP Advance Directives For more information, please contact: [phone] Documents on File Type Date Recorded Patient Shift Commander Expl anation ADVANCE DIRECTIVE 09/24/2024 6:02 PM BRANDO R OF PRIMARY SUBSTANCE ABUSE COUNSELOR-MEDICAL ADVANCE DIRECTIVE 09/18/2024 2:45 PM BRANDO R OF PRIMARY SUBSTANCE ABUSE COUNSELOR-MEDICAL * Full Code (Latest Code Status on File) Date Activated Date Inactivated Comments 09/17/2024 1:07 PM 09/20/2024 7:41 PM * Full Code Date Activated Date Inactivated Comments 04/04/2022 9:28 AM 04/04/2022 7:29 PM * Full Code Date Activated Date Inactivated Comments 08/03/2021 4:19 PM 08/04/2021 12:18 AM Care Teams Heater Planer Operator Relationship Specialty Start Date End Date Saurabh Contreras MD [address] [facility] [address] [place] [address] PCP - General 07/06/21 [place] [id number] [place] [address] Consulting Physician Vascular Surgery 09/20/24
[2025-05-17 08:15] LABS: Hematocrit 38.5 % (37.0-46.0); Hemoglobin 12.5 g/dL (12.4-15.3); Immature Granulocyte Percent A 0.4 % (0.0-0.0); Lymphocytes Absolute Auto 1.44 K/mm3 (1.10-4.50); Mean Corpuscular HGB Conc 32.5 g/dL (32-36); Mean Corpuscular Hemoglobin 30.9 pg (27.0-31.0); Mean Corpuscular Volume 95.3 fL (78.0-102.0); Nucleated Red Blood Cells Absolute Auto 0.00 K/mm3 (0.00-0.00); Nucleated Red Blood Cells Perc 0.0 % (0-0.0); Platelet Count Result 180 K/mm3 (150-420); Red Blood Count 4.04 M/mm3 (4.70-6.10); White Blood Count 7.4 K/mm3 (4.8-10.8)
[2025-05-17 08:31] LABS: Alanine Aminotransferase 17 U/L (6-50); Albumin Level 4.3 g/dL (3.5-5.1); Alkaline Phosphatase 70 U/L (38-126); Anion Gap 5 mmol/L (4-12); Aspartate Amino Transferase 27 U/L (17-59); Bilirubin,Total 0.8 mg/dL (0.2-1.3); Blood Urea Nitrogen 16 mg/dL (9-20); Calcium 9.2 mg/dL (8.4-10.2); Carbon Dioxide 28 mmol/L (22-30); Chloride 108 mmol/L (98-107); Estimated Glomerular Filt Rate > 60; Glucose 131 mg/dL (65-110); Iron 97 ug/dL (49-181); Osmolality Calculated 295 mOsm/kg (285-295); Potassium 4.1 mmol/L (3.4-5.0); Sodium 141 mmol/L (137-145); Total Protein 7.3 g/dL (6.3-8.2)
[2025-05-17 08:41] LABS: Percent Iron Saturation 35 % (20-50)
[2025-05-17 09:07] LABS: Ferritin 51.40 ng/mL (11.1-264)
[2025-05-17 09:38] LABS: Vitamin B12 479.0 pg/mL (239-931)
== END 2025-05-17 07:53 | disposition home or self-care (01) ==
PROVIDERS: PCP Family Medicine; Visit Provider Physician Assistant Medical
DX: D64.9 Anemia, unspecified (principal)
CPT/HCPCS: 36415; 80053; 82607; 82728; 82746; 83540; 83550; 84466; 85025